=== PATIENT | male | born 1950 | race Two or more races ===

== ENCOUNTER 2017-08-17 21:28 | Inpatient (IN) | payer MEDICARE ==
[~2017-08-17] VITALS: Ht 165.1 cm; Wt 72.6 kg
--- NOTE | 2017-08-17 21:54 | Emergency Room Report ---
History of Present Illness General Chief Complaint: Generalized Weakness Source: Patient, EMS Present Illness HPI 67-year-old male, history of diabetes, poor historian, presenting with left- sided weakness and inability to ambulate since yesterday. Patient states that it has been constant, does not recall exactly when it happened. When asking the patient to walk, he is dragging left side. States that he normally is able to ambulate better. No history of head trauma. No numbness or tingling. No fever chills, headache, neck pain, chest pain or shortness of breath He states that he is otherwise been eating and drinking normally States that he lives alone in his own apartment last colonoscopy 1 yr ago was normal Allergies: Coded Allergies: No Known Allergies (Unverified , 08/17/17) Patient History Past Medical History: see triage record Past Surgical History: none Pertinent Family History: none Reviewed Nursing Documentation: PMH: Agreed, PSxH: Agreed Nursing Documentation-PMH Past Medical History: No History, Except For Hx Diabetes: Yes - dm2 Review of Systems All Other Systems: negative except mentioned in HPI Physical Exam Vital Signs Date Time Temp Pulse Resp B/P (MAP) Pulse Ox O2 Delivery O2 Flow Rate FiO2 08/17/17 21:09 98.8 86 16 150/70 99 Room Air Sp02 EP Interpretation: reviewed, normal General Appearance: normal inspection, well appearing, no apparent distress, alert, GCS 15, non-toxic Head: normocephalic, atraumatic Eyes: bilateral eye normal inspection, bilateral eye PERRL, bilateral eye EOMI ENT: normal ENT inspection, normal pharynx, normal voice, moist mucus membranes Neck: normal inspection, full range of motion, supple Respiratory: normal inspection, lungs clear, normal breath sounds, no respiratory distress, no retraction, no wheezing, speaking full sentences, chest symmetrical Cardiovascular #1: normal inspection, regular rate, rhythm, no edema, normal capillary refill Cardiovascular #2: 2+ radial (R), 2+ radial (L) Gastrointestinal: normal inspection, non tender, soft, non-distended, no guarding Genitourinary: no CVA tenderness Musculoskeletal: other - edema noted to dorsum of L foot, pitting, nontender, FROM Neurologic: other - aox3 but poor historian, 5/5 strength upper ext, dec strength LLE. gait is not stable. Psychiatric: normal inspection, judgement/insight normal, memory normal Skin: normal inspection, normal color, no rash, warm/dry, well hydrated, normal turgor Medical Decision Making Diagnostic Impression: Primary Impression: Severe anemia Additional Impression: Left leg weakness ER Course 67-year-old male, left-sided leg weakness for 2 days DDX: Stroke/intracranial bleed, trauma Plan: Obtain labs, ua, EKG, CXR CT head ER course: Patient has been monitored during ED stay, HD stable hgb noted to be low - transfusion initiated in ED. 2 prbcs ordered. I spoke to patient's niece. States that patient has been unable to care for himself for the last few weeks. CT HEad neg Disposition: Patient is to be admitted to tele D/W hospitalist Dr. Nguyen covering for Dr. Casanoav Please note that this Emergency Department Report was dictated using [employer] analyst technology software, occasionally this can lead to erroneous entry secondary to interpretation by the dictation equipment. EKG Diagnostic Results EP Interpretation: Yes Rate: normal Rhythm: NSR ST Segments: No acute changes ASA given to patient: No Rhythm Strip EP Interpretation: Yes Rate: 72 Rhythm: NSR, no PVCs, no ectopy Chest X-ray * CXR: Ordered: Yes 1 view Indication: Altered mental status EP interpretation: Yes Interpretation: No consolidation, no effusion, no PTX, no acute cardiopulmonary disease Impression: No acute disease Electronically signed by Noel Sweeney MD Laboratory Tests Test 08/17/17 21:50 08/17/17 22:15 White Blood Count 5.7 K/UL (4.8-10.8) Red Blood Count 3.37 M/UL (4.70-6.10) L Hemoglobin 6.5 G/DL (14.2-18.0) *L Hematocrit 24.2 % (42.0-52.0) L Mean Corpuscular Volume 72 FL (80-99) L Mean Corpuscular Hemoglobin 19.3 PG (27.0-31.0) L Mean Corpuscular Hemoglobin Concent 26.9 G/DL (32.0-36.0) L Red Cell Distribution Width 15.8 % (11.6-14.8) H Platelet Count 170 K/UL (150-450) Mean Platelet Volume 6.6 FL (6.5-10.1) Neutrophils (%) (Auto) % (45.0-75.0) Lymphocytes (%) (Auto) % (20.0-45.0) Monocytes (%) (Auto) % (1.0-10.0) Eosinophils (%) (Auto) % (0.0-3.0) Basophils (%) (Auto) % (0.0-2.0) Differential Total Cells Counted 100 Neutrophils % (Manual) 76 % (45-75) H Lymphocytes % (Manual) 16 % (20-45) L Monocytes % (Manual) 5 % (1-10) Eosinophils % (Manual) 0 % (0-3) Basophils % (Manual) 0 % (0-2) Band Neutrophils 3 % (0-8) Platelet Estimate Adequate Platelet Morphology Normal Hypochromasia 3+ Anisocytosis 2+ Microcytosis 2+ Prothrombin Time 10.7 SEC (9.30-11.50) Prothrombin Time INR 1.0 (0.9-1.1) PTT 25 SEC (23-33) Sodium Level 142 MMOL/L (136-145) Potassium Level 3.1 MMOL/L (3.5-5.1) L Chloride Level 106 MMOL/L (98-107) Carbon Dioxide Level 28 MMOL/L (21-32) Anion Gap 8 mmol/L (5-15) Blood Urea Nitrogen 19 mg/dL (7-18) H Creatinine 0.8 MG/DL (0.55-1.30) Estimate Glomerular Filtration Rate > 60 mL/min (>60) Glucose Level 90 MG/DL (74-106) Calcium Level 8.1 MG/DL (8.5-10.1) L Total Bilirubin 0.4 MG/DL (0.2-1.0) Aspartate Amino Transferase (AST) 28 U/L (15-37) Alanine Aminotransferase (ALT) 25 U/L (12-78) Alkaline Phosphatase 103 U/L (46-116) Troponin I 0.065 ng/mL (0.000-0.056) Total Protein 6.4 G/DL (6.4-8.2) Albumin 3.0 G/DL (3.4-5.0) L Globulin 3.4 g/dL Albumin/Globulin Ratio 0.9 (1.0-2.7) L Urine Color Yellow Urine Appearance Clear Urine pH 5 (4.5-8.0) Urine Specific [place] 1.015 (1.005-1.035) Urine Protein 2+ (NEGATIVE) H Urine Glucose (UA) Negative (NEGATIVE) Urine Ketones 2+ (NEGATIVE) H Urine Occult Blood Negative (NEGATIVE) Urine Nitrite Negative (NEGATIVE) Urine Bilirubin 1+ (NEGATIVE) H Urine Ictotest Negative Urine Urobilinogen 4 MG/DL (0.0-1.0) H Urine Leukocyte Esterase 1+ (NEGATIVE) H Urine RBC 0-2 /HPF (0 - 0) H Urine WBC 2-4 /HPF (0 - 0) Urine Squamous Epithelial Cells None /LPF (NONE/OCC) Urine Bacteria Few /HPF (NONE) CT/MRI/US Diagnostic Results CT/MRI/US Diagnostic Results : Imaging Test Ordered: CT Head Impression CT HEAD: No ICH, mass effect or edema. No evidence of acute cortical stroke. Periventricular small vessel ischemic change. Visualized sinuses and mastoid air cells are clear. Last Vital Signs Date Time Temp Pulse Resp B/P (MAP) Pulse Ox O2 Delivery O2 Flow Rate FiO2 08/17/17 21:09 98.8 86 16 150/70 99 Room Air Disposition: ADMITTED INPATIENT Condition: Serious Noel Sweeney M.D. Aug 17, 2017 21:54
[2017-08-17 22:40] LABS: ANION GAP 8 mmol/L (5-15); BLOOD UREA NITROGEN 19 mg/dL (7-18); CALCIUM 8.1 MG/DL (8.5-10.1); CARBON DIOXIDE 28 MMOL/L (21-32); CHLORIDE 106 MMOL/L (98-107); CREATININE 0.8 MG/DL (0.55-1.30); POTASSIUM 3.1 MMOL/L (3.5-5.1); SODIUM 142 MMOL/L (136-145)
[2017-08-17 22:43] LABS: HEMATOCRIT 24.2 % (42.0-52.0); MEAN CORPUSCULAR VOLUME 72 FL (80-99); PLATELET COUNT 170 K/UL (150-450); RED BLOOD COUNT 3.37 M/UL (4.70-6.10); RED CELL DISTRIBUTION WIDTH 15.8 % (11.6-14.8); WHITE BLOOD COUNT 5.7 K/UL (4.8-10.8)
[2017-08-17 22:45] LABS: ALANINE AMINOTRANSFERASE 25 U/L (12-78); ALBUMIN/GLOBULIN RATIO 0.9 (1.0-2.7); ALKALINE PHOSPHATASE 103 U/L (46-116); ASPARTATE AMINO TRANSFERASE 28 U/L (15-37); BILIRUBIN,TOTAL 0.4 MG/DL (0.2-1.0)
[2017-08-17 22:49] LABS: HEMOGLOBIN 6.5 G/DL (14.2-18.0)
[2017-08-17 22:56] LABS: APPEARANCE,URINE CLEAR; BILIRUBIN, URINE 1+ (NEGATIVE); GLUCOSE, URINE (UA) NEGATIVE (NEGATIVE); KETONES,URINE 2+ (NEGATIVE); LEUKOCYTE ESTERASE ,URINE 1+ (NEGATIVE); NITRITE,URINE NEGATIVE (NEGATIVE); PH,URINE 5 (4.5-8.0); PROTEIN,URINE 2+ (NEGATIVE); UROBILINOGEN,URINE 4 MG/DL (0.0-1.0)
[2017-08-17 23:19] LABS: COLOR,URINE YELLOW
[2017-08-17 23:20] VITALS: BP 130/50
[2017-08-18] VITALS (8 sets, daily range): BP systolic 101–141; BP diastolic 62–75
[2017-08-18] MEDS ORDERED: Miralax 17gm pkt ORAL PRN (01:45)
[2017-08-18] MEDS: D5 1/2NS w/KCl 20mEq 1,000 ML IV SCH ×2 (03:48→16:21)
[2017-08-18] MEDS: Docusate 100mg cap ORAL SCH ×2 (09:07→22:24)
[2017-08-18] MEDS: Pantoprazole Inj IV SCH (09:08)
--- NOTE | 2017-08-18 09:40 | Diagnostic Imaging Report ---
Indication: Altered mental status Technique: Contiguous 5 mm thick transaxial imaging of the head obtained in a Siemens Sensation [address] scanner. Soft tissue and bone windows generated. Automatic Exposure Control was utilized. Total Dose length Product (DLP): 1319.[address] Dose Index Volume (CTDIvol): 70.38 mGy Comparison: 02/27/2008 Findings: There is mild prominence of the ventricles, basal cisterns, and cerebral sulci consistent with atrophy. Mild, nonspecific, white matter hypoattenuation is noted throughout the brain consistent with chronic small vessel disease. There is no midline shift, edema, acute hemorrhage, mass effect, or abnormal extra-axial fluid collections. Bones and extra osseous soft tissues are unremarkable. Impression: No acute intracranial bleed, mass effect or edema. Mild atrophy of the brain. Nonspecific white matter hypoattenuation probably due to chronic small vessel disease. The CT scanner at [facility] is accredited by the [employer] and the scans are performed using dose optimization techniques as appropriate to a performed exam including Automatic Exposure control.
--- NOTE | 2017-08-18 10:39 | History and Physical ---
History of Present Illness General Date patient seen: Aug 18, 2017 Time patient seen: 10:38 Reason for Hospitalization: L arm/leg weakness, inability to ambulate Present Illness HPI 67y/o male with no sig pmh who presented with L sided weakness and inability to ambulate. 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 He was doing well until Tuesday when he noted L arm and leg weakness. He had difficulty ambulating. Denies f/c, n/v, d/c, chest pain, SOB, abd pain. Denies trauma, recent travel, sick contacts. No numbness/tingling. Pt lives alone and functions independently. Denies confusion, problems w/ speech/swallow. In ED, CT head was neg for acute abnormality. Labs showed anemia to 6.5, 2U pRBC ordered to be transfused. Allergies: Coded Allergies: No Known Allergies (Unverified , 08/17/17) Medication History No Active Prescriptions or Reported Meds Patient History History Provided By: Patient, Family Member, Medical Record, EMS Healthcare decision maker Resuscitation status Full Code Advanced Directive on File Past Medical/Surgical History Past Medical/Surgical History: (1) No significant past medical history Social History Social History: (1) Lives alone with help available Review of Systems Constitutional: Reports: weakness Eye: Reports: no symptoms ENT: Reports: no symptoms Respiratory: Reports: no symptoms Cardiovascular: Reports: no symptoms Gastrointestinal: Reports: no symptoms Genitourinary: Reports: no symptoms Musculoskeletal: Reports: no symptoms Skin: Reports: no symptoms Psychiatric: Reports: no symptoms Neurological: Reports: focal weakness Endocrine: Reports: no symptoms Hematologic/Lymphatic: Reports: no symptoms Physical Exam Physical Exam Narrative General: alert, cooperative, no distress, appears stated age Head: normocephalic, without obvious abnormality, atraumatic Eyes: conjunctivae/corneas clear. PERRL, EOM's intact Throat: lips, mucosa, and tongue normal. MMM Neck: supple, symmetrical, trachea midline, and no JVD Lungs: clear to auscultation bilaterally Heart: regular rate and rhythm, S1, S2 normal, no murmur, click, rub or gallop Abdomen: soft, non-tender, non-distended, bowel sounds normal; no masses or organomegaly Extremities: extremities normal, atraumatic, no cyanosis or edema Pulses: 2+ and symmetric Skin: skin color, texture, turgor normal; no rashes or lesions Neurologic: grossly normal, no focal deficits except 4/5 motor strength for L finger extensors and iliopsoas and iliopsoas. Last 24 Hour Vital Signs Date Time Temp Pulse Resp B/P (MAP) Pulse Ox O2 Delivery O2 Flow Rate FiO2 08/18/17 08:00 97.4 19 133/75 100 Room Air 08/18/17 04:00 97.0 69 18 129/73 100 08/18/17 04:00 64 08/18/17 02:40 98.0 74 15 120/64 100 Room Air 08/18/17 02:35 98.0 74 15 120/64 100 Room Air 08/18/17 02:20 97.4 71 16 08/18/17 02:18 97.4 71 16 115/62 100 Room Air 08/18/17 01:07 97.0 75 17 124/65 97 Room Air 08/17/17 23:20 97.0 75 23 130/50 100 Room Air 08/17/17 21:09 98.8 86 16 150/70 99 Room Air Intake and Output 08/17/17 08/18/17 19:00 07:00 Output Total 410 ml Balance -410 ml Output Urine Total 410 ml # Voids 1 Laboratory Tests Test 08/17/17 21:50 08/17/17 22:15 White Blood Count 5.7 K/UL (4.8-10.8) Red Blood Count 3.37 M/UL (4.70-6.10) L Hemoglobin 6.5 G/DL (14.2-18.0) *L Hematocrit 24.2 % (42.0-52.0) L Mean Corpuscular Volume 72 FL (80-99) L Mean Corpuscular Hemoglobin 19.3 PG (27.0-31.0) L Mean Corpuscular Hemoglobin Concent 26.9 G/DL (32.0-36.0) L Red Cell Distribution Width 15.8 % (11.6-14.8) H Platelet Count 170 K/UL (150-450) Mean Platelet Volume 6.6 FL (6.5-10.1) Neutrophils (%) (Auto) % (45.0-75.0) Lymphocytes (%) (Auto) % (20.0-45.0) Monocytes (%) (Auto) % (1.0-10.0) Eosinophils (%) (Auto) % (0.0-3.0) Basophils (%) (Auto) % (0.0-2.0) Differential Total Cells Counted 100 Neutrophils % (Manual) 76 % (45-75) H Lymphocytes % (Manual) 16 % (20-45) L Monocytes % (Manual) 5 % (1-10) Eosinophils % (Manual) 0 % (0-3) Basophils % (Manual) 0 % (0-2) Band Neutrophils 3 % (0-8) Platelet Estimate Adequate Platelet Morphology Normal Hypochromasia 3+ Anisocytosis 2+ Microcytosis 2+ Prothrombin Time 10.7 SEC (9.30-11.50) Prothromb Time International Ratio 1.0 (0.9-1.1) Activated Partial Thromboplast Time 25 SEC (23-33) Sodium Level 142 MMOL/L (136-145) Potassium Level 3.1 MMOL/L (3.5-5.1) L Chloride Level 106 MMOL/L (98-107) Carbon Dioxide Level 28 MMOL/L (21-32) Anion Gap 8 mmol/L (5-15) Blood Urea Nitrogen 19 mg/dL (7-18) H Creatinine 0.8 MG/DL (0.55-1.30) Estimat Glomerular Filtration Rate > 60 mL/min (>60) Glucose Level 90 MG/DL (74-106) Calcium Level 8.1 MG/DL (8.5-10.1) L Total Bilirubin 0.4 MG/DL (0.2-1.0) Aspartate Amino Transf (AST/SGOT) 28 U/L (15-37) Alanine Aminotransferase (ALT/SGPT) 25 U/L (12-78) Alkaline Phosphatase 103 U/L (46-116) Troponin I 0.065 ng/mL (0.000-0.056) Total Protein 6.4 G/DL (6.4-8.2) Albumin 3.0 G/DL (3.4-5.0) L Globulin 3.4 g/dL Albumin/Globulin Ratio 0.9 (1.0-2.7) L Urine Color Yellow Urine Appearance Clear Urine pH 5 (4.5-8.0) Urine Specific [place] 1.015 (1.005-1.035) Urine Protein 2+ (NEGATIVE) H Urine Glucose (UA) Negative (NEGATIVE) Urine Ketones 2+ (NEGATIVE) H Urine Occult Blood Negative (NEGATIVE) Urine Nitrite Negative (NEGATIVE) Urine Bilirubin 1+ (NEGATIVE) H Urine Ictotest Negative Urine Urobilinogen 4 MG/DL (0.0-1.0) H Urine Leukocyte Esterase 1+ (NEGATIVE) H Urine RBC 0-2 /HPF (0 - 0) H Urine WBC 2-4 /HPF (0 - 0) Urine Squamous Epithelial Cells None /LPF (NONE/OCC) Urine Bacteria Few /HPF (NONE) Height (Feet): 5 Height (Inches): 5.00 Weight (Pounds): 160 Medications Current Medications Medications (Trade) Dose Ordered Sig/Lizzy Route PRN Reason Start Time Stop Time Status Last Admin Dose Admin Acetaminophen (Tylenol) 650 mg Q4H PRN ORAL Mild Pain (Pain Scale 1-3) 08/18/17 01:45 09/17/17 01:44 Acetaminophen (Tylenol) 650 mg Q4H PRN ORAL fever 08/18/17 01:45 09/17/17 01:44 Bisacodyl (Dulcolax) 10 mg DAILYPRN PRN RECTAL Constipation 08/18/17 01:45 09/17/17 01:44 Dextrose (Dextrose 50%) STAT PRN IV Hypoglycemia 08/18/17 01:45 09/17/17 01:44 Dextrose/ Electrolytes 1,000 ml @ 75 mls/hr [id number] IV 08/18/17 03:00 09/17/17 02:59 08/18/17 03:48 Docusate Sodium (Colace) 100 mg EVERY 12 HOURS ORAL 08/18/17 09:00 09/17/17 08:59 08/18/17 09:07 Influenza Virus Vaccine Quadrival (Flu Vaccine Quadrivalent) 0.5 ml ONCE ONCE IM 08/18/17 11:00 08/18/17 11:01 Ondansetron HCl (Zofran) 4 mg Q6H PRN IVP Nausea & Vomiting 08/18/17 01:45 09/17/17 01:44 Pantoprazole (Protonix) 40 mg DAILY IV 08/18/17 09:00 09/17/17 08:59 08/18/17 09:08 Pneumococcal Polyvalent Vaccine (Pneumovax) 0.5 ml ONCE ONCE IM 08/18/17 11:00 08/18/17 11:01 Polyethylene Glycol (Miralax) 17 gm DAILYPRN PRN ORAL Constipation 08/18/17 01:45 09/17/17 01:44 Assessment/Plan Problem List: (1) Acute CVA of R parietal lobe (2) Severe anemia Assessment & Plan: Microcytic anemia ICD Codes: D64.9 - Anemia, unspecified SNOMED: 900850983 (3) Hypokalemia ICD Codes: E87.6 - Hypokalemia SNOMED: 58310541 Status: stable Assessment/Plan Admit to tele Neuro consulted F/u MRI brain--confirms acute R parietal lobe CVA Neuro checks Check carotid U/S Trend trop/EKG Check TTE ASA 325mg daily given CVA Check lipid panel, TSH, A1C Hematology consulted given severe anemia s/p 2U pRBC on 08/17/17 Check B12/folate, Fe panel/ferritin GI consulted given severe anemia Likely plan for EGD tomorrow per GI Trend CBC, BMP Replete lytes Pain control, bowel regimen Supportive care PT/OT DVT Prophylaxis: SCD Code Status: Full Hospital Classification Declaration: Based on this initial evaluation, and depending on the patient's clinical course, I anticipate that this patient will require hospitalization for 2-3 days for acute CVA, severe anemia and close respiratory/hemodynamic monitoring. Disposition: Once the patient is stable to leave the hospital, I anticipate the patient will likely be discharged to the following environment: home with HH vs SNF vs ARU I spent 72 minutes on this patient's case, and 40 minutes were dedicated to counseling and/or care coordination. Discussed with patient/family, nursing staff, SW/CM, GI, hematology, neuro regarding clinical status, treatment course , and disposition planning. Time of note may not reflect time of encounter. Smitha Lilly M.D. Aug 18, 2017 10:39
--- NOTE | 2017-08-18 10:43 | Diagnostic Imaging Report ---
Indication: Dyspnea Comparison: None A single view chest radiograph was obtained. Findings: Cardiomediastinal appearance is within normal limits for age. Pulmonary vascularity is appropriate. The diaphragmatic contour is smooth and costophrenic angles are sharp. No pleural effusions are identified. Marginal spurs noted throughout the thoracic spine. Visualized part of the upper abdomen demonstrates dilated loops of bowel which appear to be portions of the colon. Please correlate clinically and evaluate further as needed. Impression: Distended colon. Please correlate clinically
[2017-08-18] MEDS ORDERED: Flu Vaccine Quadrivalent 0.5ml IM ONE (11:00)
[2017-08-18] MEDS ORDERED: Pneumococcal Vaccine 25mcg/0.5ml IM ONE (11:00)
--- NOTE | 2017-08-18 12:14 | Diagnostic Imaging Report ---
Indication: Right-sided weakness 63-year-old male Technique: The head was imaged in a 1.5 Chrystal magnet. Sequences obtained include sagittal and axial T1 FLAIR, axial T2 fast spin echo with fat saturation, axial T2 FLAIR, diffusion and ADC map. Comparison: CT head 08/17/2017 There is a focus of diffusion restriction involving the right parietal lobe. The involvement is cortical and subcortical and primarily involves the postcentral gyrus parietal lobe. Findings consistent with acute nonhemorrhagic CVA. Some associated T2 hyperintense edema noted. There is no susceptibility identified on T2*gradient echo. There is no mass effect on the sulci which appear symmetric. The ventricles are prominent but symmetric. Generalized prominence of cerebral sulci and basal cisterns noted consistent with atrophy. Periventricular T2 hyperintense signal consistent with chronic small vessel disease. Corpus callosum is unremarkable. Osseous bone marrow signal is age-appropriate. Sella is unremarkable. IMPRESSION: Acute CVA in the right parietal cortex involving the postcentral gyrus. Mild associated edema. No mass effect, midline shift or evidence of associated hemorrhage. Age-related findings as discussed above Critical value communication. Findings were discussed via telephone with the floor nurse on 2 E. at 12:08 PM, 08/18/2017 .
[2017-08-18] MEDS ORDERED: Nulytely 4L ORAL ONE (16:00)
[2017-08-18] MEDS ORDERED: Bisacodyl EC 5mg tab ORAL ONE (16:00)
[2017-08-18 16:17] LABS: BASOPHILS % (AUTO) 0.9 % (0.0-2.0); EOSINOPHILS % (AUTO) 0.9 % (0.0-3.0); HEMATOCRIT 29.7 % (42.0-52.0); HEMOGLOBIN 8.4 G/DL (14.2-18.0); LYMPHOCYTES % (AUTO) 17.9 % (20.0-45.0); MEAN CORPUSCULAR VOLUME 74 FL (80-99); MONOCYTES % (AUTO) 10.6 % (1.0-10.0); NEUTROPHILS % (AUTO) 69.7 % (45.0-75.0); PLATELET COUNT 161 K/UL (150-450); RED BLOOD COUNT 3.99 M/UL (4.70-6.10); RED CELL DISTRIBUTION WIDTH 16.7 % (11.6-14.8); WHITE BLOOD COUNT 4.4 K/UL (4.8-10.8)
[2017-08-18 16:26] LABS: ANION GAP 8 mmol/L (5-15); BLOOD UREA NITROGEN 12 mg/dL (7-18); CALCIUM 8.2 MG/DL (8.5-10.1); CARBON DIOXIDE 28 MMOL/L (21-32); CHLORIDE 106 MMOL/L (98-107); CREATININE 0.7 MG/DL (0.55-1.30); POTASSIUM 3.3 MMOL/L (3.5-5.1); SODIUM 142 MMOL/L (136-145)
[2017-08-18 16:27] LABS: BILIRUBIN,TOTAL 1.5 MG/DL (0.2-1.0)
[2017-08-18 16:31] LABS: FERRITIN 8 NG/ML (8-388)
[2017-08-18 16:44] LABS: % IRON SATURATION 60 % (15-50); IRON 258 ug/dL (50-175); TOTAL IRON BINDING CAPACITY 428 ug/dL (250-450)
[2017-08-18 16:45] LABS: BILIRUBIN,DIRECT 0.4 MG/DL (0.0-0.3)
--- NOTE | 2017-08-18 17:35 | GI Initial Consult Note ---
Rani Mercado N.PSchuyler 08/18/17 1735: History of Present Illness General Date patient seen: Aug 18, 2017 Time patient seen: 11:00 Reason for Hospitalization: Generalized Weakness Referring physician: STEVEN ISABEL Reason for Consultation: ANEMIA Present Illness HPI 67-year-old male, history of diabetes, poor historian, presenting with left- sided weakness and inability to ambulate since yesterday. Patient states that it has been constant, does not recall exactly when it happened. When asking the patient to walk, he is dragging left side. States that he normally is able to ambulate better. No history of head trauma. No numbness or tingling. No fever chills, headache, neck pain, chest pain or shortness of breath He states that he is otherwise been eating and drinking normally States that he lives alone in his own apartment last colonoscopy 1 yr ago was normal GI consulted for anemia. HPI noted above. Pt seen on floor, awake A&O NAD with no active s/sx of N/V/D. He presents today with symptomatic anemia of low Hgb 6.5 requiring blood transfusion and mild troponin elevation. Patient pending brain MRI at this time. No other GI complaints noted at this time. Home Meds No Active Prescriptions or Reported Meds Med list reviewed/reconciled: Yes Allergies: Coded Allergies: No Known Allergies (Unverified , 08/17/17) Patient History History Provided By: Patient, Medical Record PMH Narrative Past Medical History: see triage record Past Surgical History: none Pertinent Family History: none Reviewed Nursing Documentation: PMH: Agreed, PSxH: Agreed Nursing Documentation-PMH Past Medical History: No History, Except For Hx Diabetes: Yes - dm2 Review of Systems All Other Systems: negative except mentioned in HPI Physical Exam Vital Signs Date Time Temp Pulse Resp B/P (MAP) Pulse Ox O2 Delivery O2 Flow Rate FiO2 08/17/17 21:09 98.8 86 16 150/70 99 Room Air Sp02 EP Interpretation: reviewed, normal Labs Laboratory Tests Test 08/17/17 21:50 08/17/17 22:15 08/18/17 15:30 White Blood Count 5.7 K/UL (4.8-10.8) 4.4 K/UL (4.8-10.8) L Red Blood Count 3.37 M/UL (4.70-6.10) L 3.99 M/UL (4.70-6.10) L Hemoglobin 6.5 G/DL (14.2-18.0) *L 8.4 G/DL (14.2-18.0) L Hematocrit 24.2 % (42.0-52.0) L 29.7 % (42.0-52.0) L Mean Corpuscular Volume 72 FL (80-99) L 74 FL (80-99) L Mean Corpuscular Hemoglobin 19.3 PG (27.0-31.0) L 21.1 PG (27.0-31.0) L Mean Corpuscular Hemoglobin Concent 26.9 G/DL (32.0-36.0) L 28.4 G/DL (32.0-36.0) L Red Cell Distribution Width 15.8 % (11.6-14.8) H 16.7 % (11.6-14.8) H Platelet Count 170 K/UL (150-450) 161 K/UL (150-450) Mean Platelet Volume 6.6 FL (6.5-10.1) 7.3 FL (6.5-10.1) Neutrophils (%) (Auto) % (45.0-75.0) 69.7 % (45.0-75.0) Lymphocytes (%) (Auto) % (20.0-45.0) 17.9 % (20.0-45.0) L Monocytes (%) (Auto) % (1.0-10.0) 10.6 % (1.0-10.0) H Eosinophils (%) (Auto) % (0.0-3.0) 0.9 % (0.0-3.0) Basophils (%) (Auto) % (0.0-2.0) 0.9 % (0.0-2.0) Differential Total Cells Counted 100 Neutrophils % (Manual) 76 % (45-75) H Pending Lymphocytes % (Manual) 16 % (20-45) L Pending Monocytes % (Manual) 5 % (1-10) Eosinophils % (Manual) 0 % (0-3) Basophils % (Manual) 0 % (0-2) Band Neutrophils 3 % (0-8) Platelet Estimate Adequate Pending Platelet Morphology Normal Pending Hypochromasia 3+ Anisocytosis 2+ Microcytosis 2+ Prothrombin Time 10.7 SEC (9.30-11.50) Prothromb Time International Ratio 1.0 (0.9-1.1) Activated Partial Thromboplast Time 25 SEC (23-33) Sodium Level 142 MMOL/L (136-145) 142 MMOL/L (136-145) Potassium Level 3.1 MMOL/L (3.5-5.1) L 3.3 MMOL/L (3.5-5.1) L Chloride Level 106 MMOL/L (98-107) 106 MMOL/L (98-107) Carbon Dioxide Level 28 MMOL/L (21-32) 28 MMOL/L (21-32) Anion Gap 8 mmol/L (5-15) 8 mmol/L (5-15) Blood Urea Nitrogen 19 mg/dL (7-18) H 12 mg/dL (7-18) Creatinine 0.8 MG/DL (0.55-1.30) 0.7 MG/DL (0.55-1.30) Estimat Glomerular Filtration Rate > 60 mL/min (>60) > 60 mL/min (>60) Glucose Level 90 MG/DL (74-106) 93 MG/DL (74-106) Calcium Level 8.1 MG/DL (8.5-10.1) L 8.2 MG/DL (8.5-10.1) L Total Bilirubin 0.4 MG/DL (0.2-1.0) 1.5 MG/DL (0.2-1.0) H Aspartate Amino Transf (AST/SGOT) 28 U/L (15-37) Alanine Aminotransferase (ALT/SGPT) 25 U/L (12-78) Alkaline Phosphatase 103 U/L (46-116) Troponin I 0.065 ng/mL (0.000-0.056) 0.052 ng/mL (0.000-0.056) Total Protein 6.4 G/DL (6.4-8.2) Albumin 3.0 G/DL (3.4-5.0) L Globulin 3.4 g/dL Albumin/Globulin Ratio 0.9 (1.0-2.7) L Urine Color Yellow Urine Appearance Clear Urine pH 5 (4.5-8.0) Urine Specific [place] 1.015 (1.005-1.035) Urine Protein 2+ (NEGATIVE) H Urine Glucose (UA) Negative (NEGATIVE) Urine Ketones 2+ (NEGATIVE) H Urine Occult Blood Negative (NEGATIVE) Urine Nitrite Negative (NEGATIVE) Urine Bilirubin 1+ (NEGATIVE) H Urine Ictotest Negative Urine Urobilinogen 4 MG/DL (0.0-1.0) H Urine Leukocyte Esterase 1+ (NEGATIVE) H Urine RBC 0-2 /HPF (0 - 0) H Urine WBC 2-4 /HPF (0 - 0) Urine Squamous Epithelial Cells None /LPF (NONE/OCC) Urine Bacteria Few /HPF (NONE) Hemoglobin A Pending Hemoglobin A2 Pending Hemoglobin C Pending Hemoglobin F () Pending Hemoglobin S Pending Variant Hemoglobin Pending Hemoglobin Electrophoresis Interp Pending Hemoglobin Interpretation Pending Hemoglobin Solubility Pending Magnesium Level 1.8 MG/DL (1.8-2.4) Iron Level 258 ug/dL (50-175) H Total Iron Binding Capacity 428 ug/dL (250-450) Percent Iron Saturation 60 % (15-50) H Unsaturated Iron Binding 170 ug/dL (112-346) Ferritin 8 NG/ML (8-388) Direct Bilirubin 0.4 MG/DL (0.0-0.3) H Lactate Dehydrogenase 264 U/L (81-234) H Vitamin B12 Level 221 PG/ML (193-986) Vitamin D 25-Hydroxy Pending 25-Hydroxy Vitamin D2 Pending 25-Hydroxy Vitamin D3 Pending Folate 17.2 NG/ML (8.6-58.9) Homocystine Pending Thyroid Stimulating Hormone (TSH) 1.168 uiU/mL (0.358-3.740) General Appearance: well appearing, no apparent distress, alert Head: normocephalic EENT: PERRL/EOMI, normal ENT inspection Neck: supple Respiratory: normal breath sounds, no respiratory distress Cardiovascular: normal rate Gastrointestinal: normal inspection, non tender, soft, normal bowel sounds, non -distended Rectal: deferred Genitourinary: deferred Musculoskeletal: normal inspection, back normal Neurologic: normal inspection, alert, oriented x3, responsive Psychiatric: normal inspection, judgement/insight normal, memory normal Skin: normal inspection, normal color, no rash, warm/dry, palpation normal, well hydrated Lymphatic: normal inspection, no adenopathy Current Medications Current Medications Medications (Trade) Dose Ordered Sig/Lizzy Route PRN Reason Start Time Stop Time Status Last Admin Dose Admin Acetaminophen (Tylenol) 650 mg Q4H PRN ORAL Mild Pain (Pain Scale 1-3) 08/18/17 01:45 09/17/17 01:44 Acetaminophen (Tylenol) 650 mg Q4H PRN ORAL fever 08/18/17 01:45 09/17/17 01:44 Aspirin (ASA) 325 mg DAILY ORAL 08/18/17 14:00 09/17/17 13:59 08/18/17 13:55 Bisacodyl (Dulcolax) 10 mg DAILYPRN PRN RECTAL Constipation 08/18/17 01:45 09/17/17 01:44 Dextrose (Dextrose 50%) STAT PRN IV Hypoglycemia 08/18/17 01:45 09/17/17 01:44 Dextrose/ Electrolytes 1,000 ml @ 75 mls/hr [id number] IV 08/18/17 03:00 09/17/17 02:59 08/18/17 16:21 Docusate Sodium (Colace) 100 mg EVERY 12 HOURS ORAL 08/18/17 09:00 09/17/17 08:59 08/18/17 09:07 Ondansetron HCl (Zofran) 4 mg Q6H PRN IVP Nausea & Vomiting 08/18/17 01:45 09/17/17 01:44 Pantoprazole (Protonix) 40 mg DAILY IV 08/18/17 09:00 09/17/17 08:59 08/18/17 09:08 Polyethylene Glycol (Miralax) 17 gm DAILYPRN PRN ORAL Constipation 08/18/17 01:45 09/17/17 01:44 Sodium Phosphate (Fleet's Sodium Phosl Enema) 133 ml ONCE ONCE RECTAL 08/18/17 23:00 08/18/17 23:01 GI: Plan Problems: (1) Severe anemia Plan EGD/colonoscopy scheduled for tomorrow given severe symptomatic anemia. - CLD now, NPO @ NH. - hold all blood thinners tonight. anemia work up reviewed prn transfusions ppi fu labs Discussed with Dr. Betancur. Thank you for this patient referral, we will follow. VANNESSA BETANCUR 08/19/17 1207: History of Present Illness General Reason for Hospitalization: Generalized Weakness Present Illness Home Meds No Active Prescriptions or Reported Meds Allergies: Coded Allergies: No Known Allergies (Unverified , 08/17/17) GI: Plan Plan The patient was seen and examined at bedside and all new and available data was reviewed in the patients chart. I agree with the above findings, impression and plan. (Patient seen earlier today. Signature stamp does not reflect patient encounter time.). - MD [facility] [place] Laron NSchuylerPSchuyler Aug 18, 2017 17:35 VANNESSA BETANCUR Aug 19, 2017 12:07
--- NOTE | 2017-08-18 19:41 | Consultation ---
Consult Note Consult Note NEUROLOGY CONSULTATION: Full note dictated #[id number] 67 y/o, RH, HM with a 3 days history of progressive left sided weakness. He thus presented to the [facility] ER On being evaluated in the ER he had a CT of the brain which was reportedly normal. Lab tests revealed that he was severely anemic with a HB of 6.5. His B 12 level was also low at 221. He then had a MRI of the brain which revealed a right predominantly parietal infarct with minimal involvement of the frontal area. ON EXAM: Mild problems with memory, HCF Left paresis Left hyper-reflexia Left paretic gait. 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 Severe anemia. Neurologic B 12 deficiency. REC: Agree with Rx. Agree with GI W/U to evaluate for GI source of bleeding. Correct Hb to >10 G Carotid duplex. PT/OT Observe Chavez Salcido M.D., M.S.P.CHAVEZ EARLY Aug 18, 2017 19:41
[2017-08-18] MEDS: Vitamin B12 1000mcg/ml Inj SUBQ SCH (22:24)
--- NOTE | 2017-08-18 22:45 | Consultation ---
DATE OF CONSULTATION: 08/18/2017 NEUROLOGY CONSULTATION CONSULTING PHYSICIAN: José Miguel Salcido M.D. REQUESTING PHYSICIAN: Smitha Lilly M.D. HISTORY: Mr. Hany Collazo is a 67-year-old, right-handed, gentleman, who has a relatively benign past history. He tells us that he was functioning relatively well until three days ago when he noticed progressive weakness involving his left upper and lower extremities. As a result of that, he presented to the [facility] on 08/17/2017. He was evaluated with laboratory data, which revealed that he was significantly anemic. He also had a CT scan of the brain performed, which was relatively benign. He was then admitted to the hospital and has continued to have left-sided weakness. He has also noticed that walking has become a little difficult. The weakness that was progressively worsening has remained about the same today. He denies any altered sensations, problems with speech, problems with language, problems with vision, or any other neurological symptoms. He also denies any similar symptoms in the past. PAST MEDICAL HISTORY: Significant for diabetes mellitus as per the chart, but the patient denies any past history of any illness. FAMILY HISTORY: Nothing significant as per the patient. PERSONAL HISTORY: Home: He lives with other family members. Work: He cleans rooms. Habits: He denies the use of alcohol, tobacco, or illicit drugs. PRESENT MEDICATIONS: Include aspirin 325 mg, Protonix, DSS, Tylenol p.r.n., Dulcolax p.r.n., MiraLax p.r.n., and Zofran p.r.n. PHYSICAL EXAMINATION: GENERAL: He is a well-developed, relatively well-nourished, pleasant, gentleman, lying in bed, in no acute distress. VITAL SIGNS: Pulse 68 per minute, blood pressure 125/71 mmHg, respirations 18 per minute, and temperature 96.8 degrees Fahrenheit. HEAD: Normocephalic and atraumatic. NECK: No neck rigidity was observed. EENT: Benign. NEUROLOGICAL EXAMINATION: MENTAL STATUS EXAMINATION: He was awake and alert. He was oriented to person, place, and time. He was able to recall 3/3 words immediately after 1 minute and after 3 minutes on the second trial. He was able to remember presidents, Trump through Golden Amarjit spontaneously, but needed hints to remember through Golden Senior. His mathematical skills were impaired. His visuospatial function was also impaired. SPEECH: He had no dysarthria. LANGUAGE: He had no aphasia in [place]. CRANIAL NERVE EXAMINATION: II: The visual archuleta were intact on confrontation testing. III, IV & : External ocular movements were full and the pupils 3 mm in diameter, equal, round, regular, and reactive to light. V: He had normal facial sensations and the temporales, masseters, and pterygoids functioned normally. VII: He had a mild left seventh central facial paresis. VIII: He was able to hear well bilaterally and had no nystagmus. IX: The palate moved symmetrically on phonation. X: He had no hoarseness of voice. XI: The sternocleidomastoids and trapezii functioned normally. XII: The tongue was in the midline without any fasciculations or atrophy. MOTOR SYSTEM: The tone was normal in all four extremities. Examination of muscle mass revealed no focal wasting. Examination of power revealed G 5/5 power except for G 4+/5 power in the left finger extensors and iliopsoas. SENSORY EXAMINATION: He had intact sensations to pinprick, light touch, and graphesthesia. COORDINATION: He performed well on [id number] and [id number]-txxt testing. Rapid alternating movements, however, were quite clumsy on the left side compared to the right. REFLEXES: 2+ on the right and 2++ on the left in the biceps, triceps, and brachioradialis, 2+ on the right and 3+ on the left at the knees, 1+ at both ankles. The plantar responses were flexor bilaterally. STANCE: He stood up with contact guard. GAIT: He walked with a left hemiparetic gait with contact guard. DIAGNOSTIC IMPRESSION: 1. Mr. Hany Collazo is a 67-year-old, right-handed, gentleman, with a past history of diabetes mellitus, who approximately three days ago noted some progressive left-sided weakness. As a result of that, he presented to the [facility] Room. He was noted to be significantly anemic, but a CT scan of the brain was benign. 2. On neurological examination at this time, he does have mild problems with recent and remote memory, visuospatial function, and higher cognitive function. He also has left hemiparesis involving the face, upper and lower extremities, left-sided hyperreflexia, and left hemiparetic gait. 3. The MRI scan of the brain performed on 08/18/2017 reveals a right-sided predominantly parietal infarct with minimal involvement of the frontal area. 4. Laboratory data revealed that his hemoglobin on admission was at 6.5 G. He had a normal INR. The chemistry panel revealed that his BUN was elevated to 19. His albumin was low at 3.0. His vitamin B12 level was low at 221. His folic acid level was 17.2 and his bilirubin was elevated to 1.5. His urinalysis revealed 1+ leukocyte esterase, 0 to 2 red blood cells, and 2 to 4 white blood cells per high-power field. 5. 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 He also has severe anemia and vitamin B12 deficiency. RECOMMENDATIONS: 1. Agree with management thus far. 2. Agree with working the patient up for a gastrointestinal source of bleeding. 3. The patient's hemoglobin should be brought up to greater than 10 G. 4. A carotid duplex should be performed to evaluate the patient for hemodynamically significant carotid disease. 5. He should be given vitamin B12 1000 mcg subcutaneously daily for the next three days and then monthly. 6. Physical and occupational therapy should be started to rehabilitate him. 7. The patient will be observed closely and depending on how he fairs over the next day or so, further recommendations will be given. Thank you for entrusting me with the care of Mr. Collazo. I shall follow him with you. José Miguel Salcido M.D., M.S.P.H. DR: Nic JOB#: [id number] SHANNON
[2017-08-18] MEDS ORDERED: Fleet's Enema 133ml RECTAL ONE (23:00)
[2017-08-19] VITALS (10 sets, daily range): BP systolic 100–139; BP diastolic 63–88
--- NOTE | 2017-08-19 06:33 | Anethesia Preoperative Eval ---
Anesthesia Pre-op PMH/ROS General Date of Evaluation: Aug 19, 2017 Time of Evaluation: 06:30 Anesthesiologist: james ASA Score: ASA 3 Mallampati Score Class I : Soft palate, uvula, fauces, pillars visible Class II: Soft palate, uvula, fauces visible Class III: Soft palate, base of uvula visible Class IV: Only hard plate visible Mallampati Classification: Class II Surgeon: luis Diagnosis: severe anemia Surgical Procedure: egd/colonoscopy Anesthesia History: none Social History: smoking Family History: no anesthesia problems Allergies: Coded Allergies: No Known Allergies (Unverified , 08/17/17) Medications: see eMAR Past Medical History Gastrointestinal/Genitourinary: Reports: other - prostate tumor non cancerous, Neurologic/Psychiatric: Reports: other - left sided weakness, generalized weakness, unable to ambulate Endocrine: Reports: DM Hematology/Immune: Reports: anemia Anesthesia Pre-op Phys. Exam Physician Exam Last Vital Signs Date Time Temp Pulse Resp B/P (MAP) Pulse Ox O2 Delivery O2 Flow Rate FiO2 08/19/17 04:19 98.5 61 18 124/64 97 Room Air Constitutional: NAD Neurologic: CN 2-12 intact Cardiovascular: RRR Respiratory: CTA Gastrointestinal: S/NT/ND Airway Exam Mallampati Score: Class II MO: full Neck: supple TMD: 2fb ROM: limited Anesthesia Pre-op A/P Labs Hematology Test 08/18/17 15:30 White Blood Count 4.4 K/UL (4.8-10.8) L Red Blood Count 3.99 M/UL (4.70-6.10) L Hemoglobin 8.4 G/DL (14.2-18.0) L Hematocrit 29.7 % (42.0-52.0) L Mean Corpuscular Volume 74 FL (80-99) L Mean Corpuscular Hemoglobin 21.1 PG (27.0-31.0) L Mean Corpuscular Hemoglobin Concent 28.4 G/DL (32.0-36.0) L Red Cell Distribution Width 16.7 % (11.6-14.8) H Platelet Count 161 K/UL (150-450) Mean Platelet Volume 7.3 FL (6.5-10.1) Neutrophils (%) (Auto) 69.7 % (45.0-75.0) Lymphocytes (%) (Auto) 17.9 % (20.0-45.0) L Monocytes (%) (Auto) 10.6 % (1.0-10.0) H Eosinophils (%) (Auto) 0.9 % (0.0-3.0) Basophils (%) (Auto) 0.9 % (0.0-2.0) Hemoglobin A Pending Hemoglobin A2 Pending Hemoglobin C Pending Hemoglobin F () Pending Hemoglobin S Pending Variant Hemoglobin Pending Hemoglobin Electrophoresis Interp Pending Hemoglobin Interpretation Pending Hemoglobin Solubility Pending Coagulation Test 08/18/17 18:25 Fibrinogen 175 mg/dL (200-400) L Chemistry Test 08/18/17 15:30 Sodium Level 142 MMOL/L (136-145) Potassium Level 3.3 MMOL/L (3.5-5.1) L Chloride Level 106 MMOL/L (98-107) Carbon Dioxide Level 28 MMOL/L (21-32) Anion Gap 8 mmol/L (5-15) Blood Urea Nitrogen 12 mg/dL (7-18) Creatinine 0.7 MG/DL (0.55-1.30) Estimat Glomerular Filtration Rate > 60 mL/min (>60) Glucose Level 93 MG/DL (74-106) Calcium Level 8.2 MG/DL (8.5-10.1) L Magnesium Level 1.8 MG/DL (1.8-2.4) Iron Level 258 ug/dL (50-175) H Total Iron Binding Capacity 428 ug/dL (250-450) Percent Iron Saturation 60 % (15-50) H Unsaturated Iron Binding 170 ug/dL (112-346) Ferritin 8 NG/ML (8-388) Total Bilirubin 1.5 MG/DL (0.2-1.0) H Direct Bilirubin 0.4 MG/DL (0.0-0.3) H Lactate Dehydrogenase 264 U/L (81-234) H Troponin I 0.052 ng/mL (0.000-0.056) Vitamin B12 Level 221 PG/ML (193-986) Vitamin D 25-Hydroxy Pending 25-Hydroxy Vitamin D2 Pending 25-Hydroxy Vitamin D3 Pending Folate 17.2 NG/ML (8.6-58.9) Homocystine Pending Thyroid Stimulating Hormone (TSH) 1.168 uiU/mL (0.358-3.740) Risk Assessment & Plan Assessment: asa3 Plan: mac Status Change Before Surgery: No Pre-Antibiotics Drug: ABBY Bean Aug 19, 2017 06:33
[2017-08-19 08:05] LABS: HEMATOCRIT 26.1 % (42.0-52.0); HEMOGLOBIN 8.1 G/DL (14.2-18.0); MEAN CORPUSCULAR VOLUME 74 FL (80-99); PLATELET COUNT 163 K/UL (150-450); RED BLOOD COUNT 3.54 M/UL (4.70-6.10); RED CELL DISTRIBUTION WIDTH 17.3 % (11.6-14.8); WHITE BLOOD COUNT 3.3 K/UL (4.8-10.8)
[2017-08-19 08:19] LABS: ANION GAP 6 mmol/L (5-15); BLOOD UREA NITROGEN 12 mg/dL (7-18); CALCIUM 8.2 MG/DL (8.5-10.1); CARBON DIOXIDE 30 MMOL/L (21-32); CHLORIDE 107 MMOL/L (98-107); CHOLESTEROL 94 MG/DL (< 200); CREATININE 0.7 MG/DL (0.55-1.30); HDL CHOLESTEROL 34 MG/DL (40-60); POTASSIUM 4.5 MMOL/L (3.5-5.1); SODIUM 142 MMOL/L (136-145); TRIGLYCERIDES 44 MG/DL (30-150)
[2017-08-19 08:26] LABS: ALANINE AMINOTRANSFERASE 30 U/L (12-78); ALBUMIN 2.7 G/DL (3.4-5.0); ALKALINE PHOSPHATASE 95 U/L (46-116); ASPARTATE AMINO TRANSFERASE 25 U/L (15-37); BILIRUBIN,DIRECT 0.2 MG/DL (0.0-0.3); BILIRUBIN,TOTAL 0.7 MG/DL (0.2-1.0)
[2017-08-19] MEDS: D5 1/2NS w/KCl 20mEq 1,000 ML IV SCH ×2 (08:27→18:57)
[2017-08-19] MEDS: Pantoprazole Inj IV SCH (08:28)
[2017-08-19] MEDS: Docusate 100mg cap ORAL SCH ×2 (08:28→20:35)
[2017-08-19 08:45] LABS: INR 1.1 (0.9-1.1)
[2017-08-19] MEDS ORDERED: Propofol 200mg/20ml IV ONE (08:55)
[2017-08-19] MEDS ORDERED: Lidocaine 1% MPF 10mg/ml 5ml ONE (08:55)
[2017-08-19] MEDS ORDERED: NS 275ml ONE (08:55)
[2017-08-19 09:20] LABS: % IRON SATURATION 7 % (15-50); IRON 25 ug/dL (50-175); TOTAL IRON BINDING CAPACITY 367 ug/dL (250-450)
--- NOTE | 2017-08-19 09:28 | Pre-Procedure Note/Attestation ---
Pre-Procedure Note/Attestation Complete Prior to Procedure Planned Procedure: not applicable Procedure Narrative: esophagogastroduodenoscopy and colonoscopy Indications for Procedure Pre-Operative Diagnosis: anemia, GIB Attestation I attest that I discussed the nature of the procedure; its benefits; risks and complications; and alternatives (and the risks and benefits of such alternatives ), prior to the procedure, with the patient (or the patient's legal congressional representative). I attest that, if there was a reasonable possibility of needing a blood transfusion, the patient (or the patient's legal congressional representative) was given the [facility] standardized written summary, pursuant to the Delano Wentworth Blood Safety Act ([place] Health and Safety Code # 1645, as amended). I attest that I re-evaluated the patient just prior to the surgery and that there has been no change in the patient's H&P, except as documented below: VANNESSA BETANCUR Aug 19, 2017 09:28
--- NOTE | 2017-08-19 09:29 | General Progress Note ---
Assessment/Plan Problem List: (1) Acute CVA of R parietal lobe (2) Severe anemia ICD Codes: D64.9 - Anemia, unspecified SNOMED: 494700720 Assessment/Plan plan EGD and colonoscopy today Subjective ROS Limited/Unobtainable: Yes Allergies: Coded Allergies: No Known Allergies (Unverified , 08/17/17) Objective Last 24 Hour Vital Signs Date Time Temp Pulse Resp B/P (MAP) Pulse Ox O2 Delivery O2 Flow Rate FiO2 08/19/17 04:19 98.5 61 18 124/64 97 Room Air 08/19/17 04:00 56 08/19/17 00:24 96.7 54 18 110/66 Room Air 08/19/17 00:00 55 08/18/17 20:56 97.0 59 18 101/67 100 Room Air 08/18/17 20:00 56 08/18/17 16:00 68 08/18/17 16:00 96.8 57 19 125/71 100 08/18/17 12:00 97.7 60 18 141/74 99 08/18/17 12:00 64 Intake and Output 08/18/17 08/19/17 19:00 07:00 Intake Total 1347 ml 850 ml Output Total 300 ml 600 ml Balance 1047 ml 250 ml Intake Oral 472 ml IV Total 875 ml 850 ml Output Urine Total 300 ml 600 ml # Voids 3 # Bowel Movements 1 Laboratory Tests 08/18/17 15:30: White Blood Count 4.4L, Red Blood Count 3.99L, Hemoglobin 8.4L, Hematocrit 29.7L , Mean Corpuscular Volume 74L, Mean Corpuscular Hemoglobin 21.1L, Mean Corpuscular Hemoglobin Concent 28.4L, Red Cell Distribution Width 16.7H, Platelet Count 161, Mean Platelet Volume 7.3, Neutrophils (%) (Auto) 69.7, Lymphocytes (%) (Auto) 17.9L, Monocytes (%) (Auto) 10.6H, Eosinophils (%) (Auto ) 0.9, Basophils (%) (Auto) 0.9, Hemoglobin A [Pending], Hemoglobin A2 [Pending] , Hemoglobin C [Pending], Hemoglobin F () [Pending], Hemoglobin S [Pending] , Variant Hemoglobin [Pending], Hemoglobin Electrophoresis Interp [Pending], Hemoglobin Interpretation [Pending], Hemoglobin Solubility [Pending], Sodium Level 142, Potassium Level 3.3L, Chloride Level 106, Carbon Dioxide Level 28, Anion Gap 8, Blood Urea Nitrogen 12, Creatinine 0.7, Estimat Glomerular Filtration Rate > 60, Glucose Level 93, Calcium Level 8.2L, Magnesium Level 1.8 , Iron Level 258H, Total Iron Binding Capacity 428, Percent Iron Saturation 60H , Unsaturated Iron Binding 170, Ferritin 8, Total Bilirubin 1.5H, Direct Bilirubin 0.4H, Lactate Dehydrogenase 264H, Troponin I 0.052, Vitamin B12 Level 221, Vitamin D 25-Hydroxy [Pending], 25-Hydroxy Vitamin D2 [Pending], 25- Hydroxy Vitamin D3 [Pending], Folate 17.2, Homocystine 21.0H, Thyroid Stimulating Hormone (TSH) 1.168 08/18/17 18:25: Fibrinogen 175L 08/19/17 06:47: White Blood Count 3.3L, Red Blood Count 3.54L, Hemoglobin 8.1L, Hematocrit 26.1L , Mean Corpuscular Volume 74L, Mean Corpuscular Hemoglobin 23.0L, Mean Corpuscular Hemoglobin Concent 31.2L, Red Cell Distribution Width 17.3H, Platelet Count 163, Mean Platelet Volume 7.6, Neutrophils (%) (Auto) , Lymphocytes (%) (Auto) , Monocytes (%) (Auto) , Eosinophils (%) (Auto) , Basophils (%) (Auto) , Sodium Level 142, Potassium Level 4.5, Chloride Level 107 , Carbon Dioxide Level 30, Anion Gap 6, Blood Urea Nitrogen 12, Creatinine 0.7, Estimat Glomerular Filtration Rate > 60, Glucose Level 79, Calcium Level 8.2L, Magnesium Level 1.8, Iron Level 25L, Total Iron Binding Capacity 367, Percent Iron Saturation 7L, Unsaturated Iron Binding 342, Total Bilirubin 0.7, Direct Bilirubin 0.2, Troponin I 0.036, Vitamin B12 Level 7916H, Folate 18.7, Neutrophils % (Manual) [Pending], Lymphocytes % (Manual) [Pending], Platelet Estimate [Pending], Platelet Morphology [Pending], Prothrombin Time 11.0, Prothromb Time International Ratio 1.1, Activated Partial Thromboplast Time 27, Hemoglobin A1c 4.9, Aspartate Amino Transf (AST/SGOT) 25, Alanine Aminotransferase (ALT/SGPT) 30, Alkaline Phosphatase 95, Total Protein 5.6L, Albumin 2.7L, Triglycerides Level 44, Cholesterol Level 94, LDL Cholesterol 54, HDL Cholesterol 34L, Cholesterol/HDL Ratio 2.8L Height (Feet): 5 Height (Inches): 5.00 Weight (Pounds): 160 General Appearance: no apparent distress EENT: normal ENT inspection Neck: supple Cardiovascular: normal rate Respiratory/Chest: decreased breath sounds Abdomen: normal bowel sounds, non tender, soft Extremities: non-tender VANNESSA BETANCUR Aug 19, 2017 09:29
--- NOTE | 2017-08-19 10:37 | Endoscopy Procedure Note ---
Endoscopy Procedure Note Indication for Procedure: anemia Procedures Performed: EGD, colonoscopy Operative Findings/Diagnosis: gu Specimen: yes Pt Tolerated Procedure Well: Yes Estimated Blood Loss: none Anesthesiologist: shayan Anesthesia: MAC Implant(s) used?: No 50 yrs or older w/o bx or poly: Not Applicable 10yrs. F/U not recommended: Not Applicable VANNESSA BETANCUR Aug 19, 2017 10:37
[2017-08-19] MEDS ORDERED: DiphenhydrAMINE 50mg/ml Inj IVP PRN (11:00)
[2017-08-19] MEDS ORDERED: Midazolam 2mg/2ml Inj IVP PRN (11:00)
[2017-08-19] MEDS ORDERED: Atropine Inj 1mg/10ml Syr IV PRN (11:00)
[2017-08-19] MEDS ORDERED: fentaNYL 100 mcg/2 mL IV PRN (11:00)
--- NOTE | 2017-08-19 15:37 | Immediate Post-Op Evaluation ---
Immediate Post-Op Evalulation Immediate Post-Op Evalulation Procedure: egd/colonoscopy Date of Evaluation: Aug 19, 2017 Time of Evaluation: 11:07 IV Fluids: 0.9ns 150ml Blood Products: none Estimated Blood Loss: negligible Blood Pressure Systolic: 124 Blood Pressure Diastolic: 88 Pulse Rate: 57 Respiratory Rate: 18 O2 Sat by Pulse Oximetry: 100 Temperature (Fahrenheit): 97.3 Pain Score (1-10): 0 Nausea: No Vomiting: No Complications none Patient Status: awake, reacts, patent Hydration Status: adequate Drug: ABBY Crowley Aug 19, 2017 15:37
--- NOTE | 2017-08-19 15:38 | 48 Hour Post Anesthesia Eval ---
Post Anesthesia Evaluation Procedure: egd/colonoscopy Date of Evaluation: Aug 19, 2017 Time of Evaluation: 11:09 Blood Pressure Systolic: 131 0: 86 Pulse Rate: 60 Respiratory Rate: 18 Temperature (Fahrenheit): 97.3 O2 Sat by Pulse Oximetry: 99 Airway: patent Nausea: No Vomiting: No Pain Intensity: 0 Hydration Status: adequate Cardiopulmonary Status: stable Mental Status/LOC: patient returned to baseline Post-Anesthesia Complications: none Follow-up care needed: N/A ABBY VENTURA Aug 19, 2017 15:38
--- NOTE | 2017-08-19 17:31 | Procedure Note ---
DATE OF PROCEDURE: 08/19/2017 SURGEON: Rk Angulo M.D. PROCEDURE: Upper endoscopy with biopsy and colonoscopy. ANESTHESIOLOGIST: Dr. Dafne Villalobos. INSTRUMENT: Olympus adult flexible endoscope and colonoscope. INDICATION: Anemia. REASON FOR PROCEDURE: The procedure, risks, benefits, and possible consequences, including hemorrhage, aspiration, perforation and infection, and alternative treatments, were explained to the patient/legal guardian by Dr. Rk Angulo and the patient/legal guardian understood and accepted these risks. PROCEDURE: After informed consent was obtained and the patient was adequately sedated, Olympus upper endoscope was advanced mouth into the second portion of the duodenum and retroflexion was performed in the stomach. The patient with abnormal gastric findings. Gastric body and folds were very thickened and very prominent. 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 There was an ulcer in the distal body at the junction between the greater curvature of the body and antrum, this ulcer was clean based, no visible vessel, no adherent clot, measured roughly about a centimeter. Edge of this ulcer was biopsied. We also biopsied gastric body and gastric antrum. At this time, the upper endoscope was retrieved and the patient was turned over for colonoscopy. First, a rectal exam performed which was positive for internal hemorrhoids. Then, the scope was advanced from the rectum into the mid transverse colon. Given poor quality of prep, we could not advance it beyond this point. No obvious active bleeding in the colon at this time, although the prep is poor. There was some scattered diverticulosis. Retroflexion of rectum showed evidence of internal hemorrhoids. SUMMARY FINDINGS: 1. Gastric ulcer status post biopsy. 2. Prominent gastric folds, suspicious for malignancy status post biopsy. 3. Incomplete colonoscopy examination given the poor prep. 4. Diverticulosis. 5. Internal hemorrhoids. RECOMMENDATIONS: 1. Followup biopsy results and treat accordingly. 2. Check CEA level. 3. Check H. pylori serology. 4. Continue on PPI. I want to thank, Dr. Casanova for this kind referral. Rk Angulo M.D. DR: STALIN JOB#: [id number] CC: Dmitry Casanova M.D.; Fax#: [phone]
--- NOTE | 2017-08-19 17:52 | General Progress Note ---
Assessment/Plan Problem List: (1) Acute CVA of R parietal lobe (2) Severe anemia Assessment & Plan: Microcytic anemia ICD Codes: D64.9 - Anemia, unspecified SNOMED: 821822376 (3) Hypokalemia ICD Codes: E87.6 - Hypokalemia SNOMED: 93201634 (4) Acute blood loss anemia ICD Codes: D62 - Acute posthemorrhagic anemia SNOMED: 033294478 (5) Gastric ulcer ICD Codes: K25.9 - Gastric ulcer, unspecified as acute or chronic, without hemorrhage or perforation SNOMED: 607644643 Qualifiers: Status: stable Assessment/Plan Neuro consulted F/u MRI brain--confirms acute R parietal lobe CVA Neuro checks F/u carotid U/S F/u TTE ASA 325mg daily given CVA Check lipid panel, TSH, A1C Hematology consulted given severe anemia s/p 2U pRBC on 08/17/17 F/u B12/folate, Fe panel/ferritin GI consulted given severe anemia s/p EGD/colo on 08/19/17--showed gastric ulcer, prominent gastric folds suspicious for malignancy, incomplete colonoscopy prep Cont PPI F/u path biopsy Trend CBC, BMP Replete lytes Pain control, bowel regimen Supportive care PT/OT Niece requested transfer to [facility] as pt is [facility] pt but CM confirms that pt does not have active [facility] insurance CM consulted for d/c plan to ARU vs SNF DVT Prophylaxis: SCD Code Status: Full Hospital Classification Declaration: Based on this initial evaluation, and depending on the patient's clinical course, I anticipate that this patient will require hospitalization for 1-2 days for acute CVA, severe anemia and close respiratory/hemodynamic monitoring. Disposition: Once the patient is stable to leave the hospital, I anticipate the patient will likely be discharged to the following environment: home with HH vs SNF vs ARU Discussed with patient/family, nursing staff, SW/CM, GI, hematology, neuro regarding clinical status, treatment course, and disposition planning. D/w CM re dispo Time of note may not reflect time of encounter. Subjective Date patient seen: Aug 19, 2017 Time patient seen: 14:00 ROS Limited/Unobtainable: No Constitutional: Reports: no symptoms HEENT: Reports: no symptoms Cardiovascular: Reports: no symptoms Respiratory: Reports: no symptoms Gastrointestinal/Abdominal: Reports: no symptoms Genitourinary: Reports: no symptoms Neurologic/Psychiatric: Reports: no symptoms Endocrine: Reports: no symptoms Hematologic/Lymphatic: Reports: no symptoms Allergies: Coded Allergies: No Known Allergies (Unverified , 08/17/17) All Systems: reviewed and negative except above Subjective No acute o/n events s/p EGD/colo today Pt doing well. Denies f/c, n/v, d/c, chest pain, SOB Objective Last 24 Hour Vital Signs Date Time Temp Pulse Resp B/P (MAP) Pulse Ox O2 Delivery O2 Flow Rate FiO2 08/19/17 16:00 97.1 59 20 104/64 99 Room Air 08/19/17 15:38 60 18 99 08/19/17 15:37 57 18 100 08/19/17 12:00 97.5 70 19 139/84 100 Room Air 08/19/17 11:14 97.4 55 20 131/73 99 Room Air 08/19/17 11:05 54 20 124/88 99 Room Air 08/19/17 11:00 54 20 126/74 99 Nasal Cannula 3.0 08/19/17 10:55 97.3 56 20 121/78 99 Nasal Cannula 3.0 08/19/17 08:00 62 08/19/17 08:00 96.9 60 18 113/64 97 Room Air 08/19/17 04:19 98.5 61 18 124/64 97 Room Air 08/19/17 04:00 56 08/19/17 00:24 96.7 54 18 110/66 Room Air 08/19/17 00:00 55 08/18/17 20:56 97.0 59 18 101/67 100 Room Air 08/18/17 20:00 56 Intake and Output 08/18/17 08/19/17 19:00 07:00 Intake Total 1347 ml 850 ml Output Total 300 ml 600 ml Balance 1047 ml 250 ml Intake Oral 472 ml IV Total 875 ml 850 ml Output Urine Total 300 ml 600 ml # Voids 3 # Bowel Movements 1 Laboratory Tests 08/18/17 18:25: Fibrinogen 175L 08/19/17 06:47: White Blood Count 3.3L, Red Blood Count 3.54L, Hemoglobin 8.1L, Hematocrit 26.1L , Mean Corpuscular Volume 74L, Mean Corpuscular Hemoglobin 23.0L, Mean Corpuscular Hemoglobin Concent 31.2L, Red Cell Distribution Width 17.3H, Platelet Count 163, Mean Platelet Volume 7.6, Neutrophils (%) (Auto) , Lymphocytes (%) (Auto) , Monocytes (%) (Auto) , Eosinophils (%) (Auto) , Basophils (%) (Auto) , Differential Total Cells Counted 100, Neutrophils % ( Manual) 68, Lymphocytes % (Manual) 20, Monocytes % (Manual) 11H, Eosinophils % ( Manual) 0, Basophils % (Manual) 1, Band Neutrophils 0, Platelet Estimate Adequate, Platelet Morphology Normal, Hypochromasia 2+, Anisocytosis 1+, Microcytosis 2+, Prothrombin Time 11.0, Prothromb Time International Ratio 1.1, Activated Partial Thromboplast Time 27, Sodium Level 142, Potassium Level 4.5, Chloride Level 107, Carbon Dioxide Level 30, Anion Gap 6, Blood Urea Nitrogen 12 , Creatinine 0.7, Estimat Glomerular Filtration Rate > 60, Glucose Level 79, Hemoglobin A1c 4.9, Calcium Level 8.2L, Magnesium Level 1.8, Iron Level 25L, Total Iron Binding Capacity 367, Percent Iron Saturation 7L, Unsaturated Iron Binding 342, Total Bilirubin 0.7, Direct Bilirubin 0.2, Aspartate Amino Transf ( AST/SGOT) 25, Alanine Aminotransferase (ALT/SGPT) 30, Alkaline Phosphatase 95, Troponin I 0.036, Total Protein 5.6L, Albumin 2.7L, Triglycerides Level 44, Cholesterol Level 94, LDL Cholesterol 54, HDL Cholesterol 34L, Cholesterol/HDL Ratio 2.8L, Vitamin B12 Level 7916H, Folate 18.7, Hepatitis A IgM Antibody [ Pending], Hepatitis B Surface Antigen [Pending], Hepatitis B Core IgM Antibody [ Pending], Hepatitis C Antibody [Pending], HIV (1&2) Antibody Rapid Negative Height (Feet): 5 Height (Inches): 5.00 Weight (Pounds): 160 Objective General: alert, cooperative, no distress, appears stated age Head: normocephalic, without obvious abnormality, atraumatic Eyes: conjunctivae/corneas clear. PERRL, EOM's intact Throat: lips, mucosa, and tongue normal. MMM Neck: supple, symmetrical, trachea midline, and no JVD Lungs: clear to auscultation bilaterally Heart: regular rate and rhythm, S1, S2 normal, no murmur, click, rub or gallop Abdomen: soft, non-tender, non-distended, bowel sounds normal; no masses or organomegaly Extremities: extremities normal, atraumatic, no cyanosis or edema Pulses: 2+ and symmetric Skin: skin color, texture, turgor normal; no rashes or lesions Neurologic: grossly normal, no focal deficits except 4/5 motor strength for L finger extensors and iliopsoas and iliopsoas Smitha Lilly M.D. Aug 19, 2017 17:52
--- NOTE | 2017-08-19 18:27 | Neurology Progress Note ---
Interim History Interim History Interim History Mr. Collazo feels better. The mind is clear. He feels stronger. He has been eating well. The EGD/Colonoscopy revealed a gastritis, a gastric ulcer and possibly other gastric pathology.. He denies any new neurologic symptoms. Review of Systems Neuro Review of Systems Benign. Objective Physical Exam Last Vital Signs Date Time Temp Pulse Resp B/P (MAP) Pulse Ox O2 Delivery O2 Flow Rate FiO2 08/19/17 16:00 97.1 59 20 104/64 99 Room Air 08/19/17 11:00 3.0 Laboratory Tests Test 08/18/17 18:25 08/19/17 06:47 Fibrinogen 175 mg/dL (200-400) L White Blood Count 3.3 K/UL (4.8-10.8) L Red Blood Count 3.54 M/UL (4.70-6.10) L Hemoglobin 8.1 G/DL (14.2-18.0) L Hematocrit 26.1 % (42.0-52.0) L Mean Corpuscular Volume 74 FL (80-99) L Mean Corpuscular Hemoglobin 23.0 PG (27.0-31.0) L Mean Corpuscular Hemoglobin Concent 31.2 G/DL (32.0-36.0) L Red Cell Distribution Width 17.3 % (11.6-14.8) H Platelet Count 163 K/UL (150-450) Mean Platelet Volume 7.6 FL (6.5-10.1) Neutrophils (%) (Auto) % (45.0-75.0) Lymphocytes (%) (Auto) % (20.0-45.0) Monocytes (%) (Auto) % (1.0-10.0) Eosinophils (%) (Auto) % (0.0-3.0) Basophils (%) (Auto) % (0.0-2.0) Differential Total Cells Counted 100 Neutrophils % (Manual) 68 % (45-75) Lymphocytes % (Manual) 20 % (20-45) Monocytes % (Manual) 11 % (1-10) H Eosinophils % (Manual) 0 % (0-3) Basophils % (Manual) 1 % (0-2) Band Neutrophils 0 % (0-8) Platelet Estimate Adequate Platelet Morphology Normal Hypochromasia 2+ Anisocytosis 1+ Microcytosis 2+ Prothrombin Time 11.0 SEC (9.30-11.50) Prothromb Time International Ratio 1.1 (0.9-1.1) Activated Partial Thromboplast Time 27 SEC (23-33) Sodium Level 142 MMOL/L (136-145) Potassium Level 4.5 MMOL/L (3.5-5.1) Chloride Level 107 MMOL/L (98-107) Carbon Dioxide Level 30 MMOL/L (21-32) Anion Gap 6 mmol/L (5-15) Blood Urea Nitrogen 12 mg/dL (7-18) Creatinine 0.7 MG/DL (0.55-1.30) Estimat Glomerular Filtration Rate > 60 mL/min (>60) Glucose Level 79 MG/DL (74-106) Hemoglobin A1c 4.9 % (4.3-6.0) Calcium Level 8.2 MG/DL (8.5-10.1) L Magnesium Level 1.8 MG/DL (1.8-2.4) Iron Level 25 ug/dL (50-175) L Total Iron Binding Capacity 367 ug/dL (250-450) Percent Iron Saturation 7 % (15-50) L Unsaturated Iron Binding 342 ug/dL (112-346) Total Bilirubin 0.7 MG/DL (0.2-1.0) Direct Bilirubin 0.2 MG/DL (0.0-0.3) Aspartate Amino Transf (AST/SGOT) 25 U/L (15-37) Alanine Aminotransferase (ALT/SGPT) 30 U/L (12-78) Alkaline Phosphatase 95 U/L (46-116) Troponin I 0.036 ng/mL (0.000-0.056) Total Protein 5.6 G/DL (6.4-8.2) L Albumin 2.7 G/DL (3.4-5.0) L Triglycerides Level 44 MG/DL (30-150) Cholesterol Level 94 MG/DL (< 200) LDL Cholesterol 54 mg/dL (<100) HDL Cholesterol 34 MG/DL (40-60) L Cholesterol/HDL Ratio 2.8 (3.3-4.4) L Vitamin B12 Level 7916 PG/ML (193-986) H Folate 18.7 NG/ML (8.6-58.9) Hepatitis A IgM Antibody Pending Hepatitis B Surface Antigen Pending Hepatitis B Core IgM Antibody Pending Hepatitis C Antibody Pending HIV (1&2) Antibody Rapid Negative (NEGATIVE) Neurologic Exam Objective PHYSICAL EXAMINATION: GENERAL: He is a well-developed, relatively well-nourished, pleasant, gentleman, lying in bed, in no acute distress. HEAD: Normocephalic and atraumatic. NECK: No neck rigidity was observed. EENT: Benign. NEUROLOGICAL EXAMINATION: MENTAL STATUS EXAMINATION: He was awake and alert. He was oriented to person, place, and time. He was able to recall 3/3 words immediately after 1 minute and after 3 minutes on the second trial. He was able to remember presidents, Trump through Golden Amarjit spontaneously, but needed hints to remember through [employer] Senior. His mathematical skills were impaired. His visuospatial function was also impaired. SPEECH: He had no dysarthria. LANGUAGE: He had no aphasia in [place]ish. CRANIAL NERVE EXAMINATION: II: The visual archuleta were intact on confrontation testing. III, IV & : External ocular movements were full and the pupils 3 mm in diameter, equal, round, regular, and reactive to light. V: He had normal facial sensations and the temporales, masseters, and pterygoids functioned normally. VII: He had a mild left seventh central facial paresis. VIII: He was able to hear well bilaterally and had no nystagmus. IX: The palate moved symmetrically on phonation. X: He had no hoarseness of voice. XI: The sternocleidomastoids and trapezii functioned normally. XII: The tongue was in the midline without any fasciculations or atrophy. MOTOR SYSTEM: The tone was normal in all four extremities. Examination of muscle mass revealed no focal wasting. Examination of power revealed G 5/5 power except for G 4+/5 power in the left finger extensors and iliopsoas. SENSORY EXAMINATION: He had intact sensations to pinprick, light touch, and graphesthesia. COORDINATION: He performed well on [id number] and [id number] testing. Rapid alternating movements, however, were quite clumsy on the left side compared to the right. REFLEXES: 2+ on the right and 2++ on the left in the biceps, triceps, and brachioradialis, 2+ on the right and 3+ on the left at the knees, 1+ at both ankles. The plantar responses were flexor bilaterally. STANCE: He stood up with contact guard. GAIT: He walked with a left hemiparetic gait with contact guard. Impression/Recommendations Diagnostic Impression 1. Mr. Hany Collazo is a 67-year-old, right-handed, gentleman, with a benign past history, who approximately 3 days prior to admission noted some progressive left-sided weakness. As a result of that, he presented to the [facility] Emergency Room. He was noted to be significantly anemic , but a CT scan of the brain was benign. 2. He feels much better today. He feels stronger and has had no new neurologic symptoms. 3. On neurological examination at this time, he does have mild problems with recent and remote memory, visuospatial function, and higher cognitive function. He also has left hemiparesis involving the face, upper and lower extremities, left-sided hyperreflexia, and left hemiparetic gait. 4. The MRI scan of the brain performed on 08/18/2017 reveals a right-sided predominantly parietal infarct with minimal involvement of the frontal area. 5. Laboratory data revealed that his hemoglobin on admission was at 6.5 G. He had a normal INR. The chemistry panel revealed that his BUN was elevated to 19. His albumin was low at 3.0. His vitamin B12 level was low at 221. His folic acid level was 17.2 and his bilirubin was elevated to 1.5. His urinalysis revealed 1+ leukocyte esterase, 0 to 2 red blood cells, and 2 to 4 white blood cells per high-power field. His homocystine is elevated to 21. 6. 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 He also had a severe anemia and vitamin B12 deficiency. 7. His GI work up revealed a gastric ulcer status post biopsy, prominent gastric folds, suspicious for malignancy status post biopsy, incomplete colonoscopy examination given the poor prep, diverticulosis, and internal hemorrhoids. Recommendations 1. Continue present management. 2. The patient's hemoglobin should be brought up to greater than 10 G. 3. Vitamin B12 1000 mcg subcutaneously daily for 3 days and then monthly. 4. Folic acid 1 mg daily for elevated homocystine. 5. GI management as per Dr. Angulo. 6. Physical and occupational therapy should be started to rehabilitate him. 7. Can decrease aspirin to 81 mg q day in light of gastritis. Chavez Ontiveros M.D., M.S.P.H. CHAVEZ ONTIVEROS Aug 19, 2017 18:27
[2017-08-19] MEDS: Vitamin B12 1000mcg/ml Inj SUBQ SCH (20:35)
[2017-08-19] MEDS: Iron Sucrose 100 MG in NS 55 ML IV SCH (21:00)
[2017-08-20 00:25] VITALS: BP 109/63
[2017-08-20 04:41] VITALS: BP 109/66
[2017-08-20 08:00] VITALS: BP 114/73
[2017-08-20 08:04] LABS: BASOPHILS % (AUTO) 0.5 % (0.0-2.0); EOSINOPHILS % (AUTO) 0.4 % (0.0-3.0); HEMATOCRIT 25.9 % (42.0-52.0); LYMPHOCYTES % (AUTO) 14.8 % (20.0-45.0); MEAN CORPUSCULAR VOLUME 73 FL (80-99); NEUTROPHILS % (AUTO) 72.4 % (45.0-75.0); PLATELET COUNT 146 K/UL (150-450); RED BLOOD COUNT 3.53 M/UL (4.70-6.10); RED CELL DISTRIBUTION WIDTH 17.3 % (11.6-14.8); WHITE BLOOD COUNT 4.3 K/UL (4.8-10.8)
[2017-08-20 08:08] LABS: ANION GAP 4 mmol/L (5-15); BLOOD UREA NITROGEN 20 mg/dL (7-18); CALCIUM 7.8 MG/DL (8.5-10.1); CARBON DIOXIDE 28 MMOL/L (21-32); CHLORIDE 107 MMOL/L (98-107); CREATININE 0.7 MG/DL (0.55-1.30); SODIUM 139 MMOL/L (136-145)
[2017-08-20] MEDS: D5 1/2NS w/KCl 20mEq 1,000 ML IV SCH ×2 (10:19→20:34)
[2017-08-20] MEDS: Docusate 100mg cap ORAL SCH ×2 (10:20→20:34)
[2017-08-20] MEDS: Pantoprazole Inj IV SCH (10:20)
[2017-08-20 12:00] VITALS: BP 112/68
--- NOTE | 2017-08-20 12:03 | Internal Med Progress Note ---
Subjective Physician Name Yari Cameron Attending Physician Dmitry Casanova Current Medications Medications (Trade) Dose Ordered Sig/Lizzy Route PRN Reason Start Time Stop Time Status Last Admin Dose Admin Acetaminophen (Tylenol) 650 mg Q4H PRN ORAL Mild Pain (Pain Scale 1-3) 08/18/17 01:45 09/17/17 01:44 Acetaminophen (Tylenol) 650 mg Q4H PRN ORAL fever 08/18/17 01:45 09/17/17 01:44 Aspirin (ASA) 325 mg DAILY ORAL 08/18/17 14:00 09/17/17 13:59 08/20/17 10:20 Bisacodyl (Dulcolax) 10 mg DAILYPRN PRN RECTAL Constipation 08/18/17 01:45 09/17/17 01:44 Cyanocobalamin (Vitamin B12) 1,000 mcg QHS SUBQ 08/18/17 21:00 08/20/17 21:01 08/19/17 20:35 Dextrose (Dextrose 50%) STAT PRN IV Hypoglycemia 08/18/17 01:45 09/17/17 01:44 Dextrose/ Electrolytes 1,000 ml @ 75 mls/hr [id number] IV 08/18/17 03:00 09/17/17 02:59 08/20/17 10:19 Docusate Sodium (Colace) 100 mg EVERY 12 HOURS ORAL 08/18/17 09:00 09/17/17 08:59 08/20/17 10:20 Folic Acid (Folate) 1 mg DAILY ORAL 08/19/17 18:30 09/18/17 18:29 08/20/17 10:20 Iron Sucrose 100 mg/Sodium Chloride 60 ml @ 240 mls/hr BEDTIME IV 08/19/17 21:00 08/23/17 21:14 08/19/17 21:00 Ondansetron HCl (Zofran) 4 mg Q6H PRN IVP Nausea & Vomiting 08/18/17 01:45 09/17/17 01:44 Pantoprazole (Protonix) 40 mg DAILY IV 08/18/17 09:00 09/17/17 08:59 08/20/17 10:20 Polyethylene Glycol (Miralax) 17 gm DAILYPRN PRN ORAL Constipation 08/18/17 01:45 09/17/17 01:44 Allergies: Coded Allergies: No Known Allergies (Unverified , 08/17/17) Objective Last Vital Signs Date Time Temp Pulse Resp B/P (MAP) Pulse Ox O2 Delivery O2 Flow Rate FiO2 08/20/17 08:00 97.9 61 20 114/73 100 Room Air 08/19/17 11:00 3.0 Laboratory Tests Test 08/20/17 07:15 White Blood Count 4.3 K/UL (4.8-10.8) L Red Blood Count 3.53 M/UL (4.70-6.10) L Hemoglobin 8.0 G/DL (14.2-18.0) L Hematocrit 25.9 % (42.0-52.0) L Mean Corpuscular Volume 73 FL (80-99) L Mean Corpuscular Hemoglobin 22.6 PG (27.0-31.0) L Mean Corpuscular Hemoglobin Concent 30.8 G/DL (32.0-36.0) L Red Cell Distribution Width 17.3 % (11.6-14.8) H Platelet Count 146 K/UL (150-450) L Mean Platelet Volume 7.2 FL (6.5-10.1) Neutrophils (%) (Auto) 72.4 % (45.0-75.0) Lymphocytes (%) (Auto) 14.8 % (20.0-45.0) L Monocytes (%) (Auto) 12.0 % (1.0-10.0) H Eosinophils (%) (Auto) 0.4 % (0.0-3.0) Basophils (%) (Auto) 0.5 % (0.0-2.0) Sodium Level 139 MMOL/L (136-145) Potassium Level 4.0 MMOL/L (3.5-5.1) Chloride Level 107 MMOL/L (98-107) Carbon Dioxide Level 28 MMOL/L (21-32) Anion Gap 4 mmol/L (5-15) L Blood Urea Nitrogen 20 mg/dL (7-18) H Creatinine 0.7 MG/DL (0.55-1.30) Estimat Glomerular Filtration Rate > 60 mL/min (>60) Glucose Level 83 MG/DL (74-106) Calcium Level 7.8 MG/DL (8.5-10.1) L Helicobacter pylori IgG Antibody Pending Intake and Output 1/12/18 1/13/18 19:00 07:00 Intake Total 1273 ml 885 ml Output Total 400 ml Balance 1273 ml 485 ml Intake Oral 236 ml IV Total 1037 ml 885 ml Output Urine Total 400 ml # Voids 2 # Bowel Movements 1 Assessment/Plan Assessment/Plan Assessment/Plan Problem List: (1) Acute CVA of R parietal lobe (2) Severe anemia Assessment & Plan: Microcytic anemia ICD Codes: D64.9 - Anemia, unspecified SNOMED: 846833797 (3) Hypokalemia ICD Codes: E87.6 - Hypokalemia SNOMED: 66365713 (4) Acute blood loss anemia ICD Codes: D62 - Acute posthemorrhagic anemia SNOMED: 313161339 (5) Gastric ulcer ICD Codes: K25.9 - Gastric ulcer, unspecified as acute or chronic, without hemorrhage or perforation SNOMED: 288126708 Qualifiers: Status: stable Assessment/Plan Neuro consulted F/u MRI brain--confirms acute R parietal lobe CVA Neuro checks F/u carotid U/S F/u TTE ASA 325mg daily given CVA Check lipid panel, TSH, A1C Hematology consulted given severe anemia s/p 2U pRBC on 08/17/17 F/u B12/folate, Fe panel/ferritin GI consulted given severe anemia s/p EGD/colo on 08/19/17--showed gastric ulcer, prominent gastric folds suspicious for malignancy, incomplete colonoscopy prep Cont PPI F/u path biopsy Trend CBC, BMP Replete lytes Pain control, bowel regimen Supportive care PT/OT Niece requested transfer to [place] as pt is [place] pt but CM confirms that pt does not have active [place] insurance CM consulted for d/c plan to ARU vs SNF DVT Prophylaxis: SCD Code Status: Full Hospital Classification Declaration: Based on this initial evaluation, and depending on the patient's clinical course, I anticipate that this patient will require hospitalization for 1-2 days for acute CVA, severe anemia and close respiratory/hemodynamic monitoring. Disposition: Once the patient is stable to leave the hospital, I anticipate the patient will likely be discharged to the following environment: home with HH vs SNF vs ARU Discussed with patient/family, nursing staff, SW/CM, GI, hematology, neuro regarding clinical status, treatment course, and disposition planning. D/w CM re dispo Time of note may not reflect time of encounter. Subjective Date patient seen: Aug 19, 2017 Time patient seen: 14:00 ROS Limited/Unobtainable: No Constitutional: Reports: no symptoms HEENT: Reports: no symptoms Cardiovascular: Reports: no symptoms Respiratory: Reports: no symptoms Gastrointestinal/Abdominal: Reports: no symptoms Genitourinary: Reports: no symptoms Neurologic/Psychiatric: Reports: no symptoms Endocrine: Reports: no symptoms Hematologic/Lymphatic: Reports: no symptoms Allergies: Coded Allergies: No Known Allergies (Unverified , 08/17/17) All Systems: reviewed and negative except above Subjective No acute o/n events s/p EGD/colo today Pt doing well. Denies f/c, n/v, d/c, chest pain, SOB Objective Last 24 Hour Vital Signs Date Time Temp Pulse Resp B/P (MAP) Pulse Ox O2 Delivery O2 Flow Rate FiO2 08/19/17 16:00 97.1 59 20 104/64 99 Room Air 08/19/17 15:38 60 18 99 08/19/17 15:37 57 18 100 08/19/17 12:00 97.5 70 19 139/84 100 Room Air 08/19/17 11:14 97.4 55 20 131/73 99 Room Air 08/19/17 11:05 54 20 124/88 99 Room Air 08/19/17 11:00 54 20 126/74 99 Nasal Cannula 3.0 08/19/17 10:55 97.3 56 20 121/78 99 Nasal Cannula 3.0 08/19/17 08:00 62 08/19/17 08:00 96.9 60 18 113/64 97 Room Air 08/19/17 04:19 98.5 61 18 124/64 97 Room Air 08/19/17 04:00 56 08/19/17 00:24 96.7 54 18 110/66 Room Air 08/19/17 00:00 55 08/18/17 20:56 97.0 59 18 101/67 100 Room Air 08/18/17 20:00 56 Intake and Output 08/18/17 08/19/17 19:00 07:00 Intake Total 1347 ml 850 ml Output Total 300 ml 600 ml Balance 1047 ml 250 ml Intake Oral 472 ml IV Total 875 ml 850 ml Output Urine Total 300 ml 600 ml # Voids 3 # Bowel Movements 1 Laboratory Tests 1/11/18 18:25: Fibrinogen 175L 08/19/17 06:47: White Blood Count 3.3L, Red Blood Count 3.54L, Hemoglobin 8.1L, Hematocrit 26.1L , Mean Corpuscular Volume 74L, Mean Corpuscular Hemoglobin 23.0L, Mean Corpuscular Hemoglobin Concent 31.2L, Red Cell Distribution Width 17.3H, Platelet Count 163, Mean Platelet Volume 7.6, Neutrophils (%) (Auto) , Lymphocytes (%) (Auto) , Monocytes (%) (Auto) , Eosinophils (%) (Auto) , Basophils (%) (Auto) , Differential Total Cells Counted 100, Neutrophils % ( Manual) 68, Lymphocytes % (Manual) 20, Monocytes % (Manual) 11H, Eosinophils % ( Manual) 0, Basophils % (Manual) 1, Band Neutrophils 0, Platelet Estimate Adequate, Platelet Morphology Normal, Hypochromasia 2+, Anisocytosis 1+, Microcytosis 2+, Prothrombin Time 11.0, Prothromb Time International Ratio 1.1, Activated Partial Thromboplast Time 27, Sodium Level 142, Potassium Level 4.5, Chloride Level 107, Carbon Dioxide Level 30, Anion Gap 6, Blood Urea Nitrogen 12 , Creatinine 0.7, Estimat Glomerular Filtration Rate > 60, Glucose Level 79, Hemoglobin A1c 4.9, Calcium Level 8.2L, Magnesium Level 1.8, Iron Level 25L, Total Iron Binding Capacity 367, Percent Iron Saturation 7L, Unsaturated Iron Binding 342, Total Bilirubin 0.7, Direct Bilirubin 0.2, Aspartate Amino Transf ( AST/SGOT) 25, Alanine Aminotransferase (ALT/SGPT) 30, Alkaline Phosphatase 95, Troponin I 0.036, Total Protein 5.6L, Albumin 2.7L, Triglycerides Level 44, Cholesterol Level 94, LDL Cholesterol 54, HDL Cholesterol 34L, Cholesterol/HDL Ratio 2.8L, Vitamin B12 Level 7916H, Folate 18.7, Hepatitis A IgM Antibody [ Pending], Hepatitis B Surface Antigen [Pending], Hepatitis B Core IgM Antibody [ Pending], Hepatitis C Antibody [Pending], HIV (1&2) Antibody Rapid Negative Height (Feet): 5 Height (Inches): 5.00 Weight (Pounds): 160 Objective General: alert, cooperative, no distress, appears stated age Head: normocephalic, without obvious abnormality, atraumatic Eyes: conjunctivae/corneas clear. PERRL, EOM's intact Throat: lips, mucosa, and tongue normal. MMM Neck: supple, symmetrical, trachea midline, and no JVD Lungs: clear to auscultation bilaterally Heart: regular rate and rhythm, S1, S2 normal, no murmur, click, rub or gallop Abdomen: soft, non-tender, non-distended, bowel sounds normal; no masses or organomegaly Extremities: extremities normal, atraumatic, no cyanosis or edema Pulses: 2+ and symmetric Skin: skin color, texture, turgor normal; no rashes or lesions Neurologic: grossly normal, no focal deficits except 4/5 motor strength for L finger extensors and iliopsoas and iliopsoas Yari Cameron M.D. Aug 20, 2017 12:03
--- NOTE | 2017-08-20 14:29 | General Progress Note ---
Assessment/Plan Assessment/Plan Assessment - Anemia - Gastric Ulcer - CVA Recommendations - PPI - po diet at [place] - check and treat HP if (+) - IV Fe Subjective Allergies: Coded Allergies: No Known Allergies (Unverified , 08/17/17) Subjective Feels well no abdominal complaints tolerating PO Objective Last 24 Hour Vital Signs Date Time Temp Pulse Resp B/P (MAP) Pulse Ox O2 Delivery O2 Flow Rate FiO2 08/20/17 08:00 97.9 61 20 114/73 100 Room Air 08/20/17 04:41 97.5 69 18 109/66 97 Room Air 08/20/17 04:00 58 08/20/17 00:25 97.9 60 18 109/63 97 Room Air 08/19/17 20:19 98.9 60 18 100/63 Room Air 08/19/17 16:00 97.1 59 20 104/64 99 Room Air 08/19/17 16:00 62 08/19/17 15:38 60 18 99 08/19/17 15:37 57 18 100 Intake and Output 08/19/17 08/20/17 19:00 07:00 Intake Total 1273 ml 885 ml Output Total 400 ml Balance 1273 ml 485 ml Intake Oral 236 ml IV Total 1037 ml 885 ml Output Urine Total 400 ml # Voids 2 # Bowel Movements 1 Laboratory Tests 08/20/17 07:15: White Blood Count 4.3L, Red Blood Count 3.53L, Hemoglobin 8.0L, Hematocrit 25.9L , Mean Corpuscular Volume 73L, Mean Corpuscular Hemoglobin 22.6L, Mean Corpuscular Hemoglobin Concent 30.8L, Red Cell Distribution Width 17.3H, Platelet Count 146L, Mean Platelet Volume 7.2, Neutrophils (%) (Auto) 72.4, Lymphocytes (%) (Auto) 14.8L, Monocytes (%) (Auto) 12.0H, Eosinophils (%) (Auto ) 0.4, Basophils (%) (Auto) 0.5, Sodium Level 139, Potassium Level 4.0, Chloride Level 107, Carbon Dioxide Level 28, Anion Gap 4L, Blood Urea Nitrogen 20H, Creatinine 0.7, Estimat Glomerular Filtration Rate > 60, Glucose Level 83, Calcium Level 7.8L, Helicobacter pylori IgG Antibody [Pending] Height (Feet): 5 Height (Inches): 5.00 Weight (Pounds): 160 Objective WDWN NCAT supple CTA RRR Soft NT no edema NATALIO PAZ Aug 20, 2017 14:29
--- NOTE | 2017-08-20 15:27 | Cardiology Report ---
APPROVED REPORT EKG Measurement Heart [id number] Normal sinus rhythm Normal ECG
[2017-08-20 16:00] VITALS: BP 119/75
[2017-08-20] MEDS ORDERED: NS 275ml ONE (16:45)
[2017-08-20] MEDS ORDERED: Tubing Blood Filter IV ONE (16:45)
--- NOTE | 2017-08-20 17:55 | Neurology Progress Note ---
Interim History Interim History Interim History Mr. Collazo feels well today. He is feeling more energetic. The mind is clear. He feels stronger. He has been eating well. He did some walking earlier and was steadier on his feet. He denies any new neurologic symptoms. Review of Systems Neuro Review of Systems Benign. Objective Physical Exam Last Vital Signs Date Time Temp Pulse Resp B/P (MAP) Pulse Ox O2 Delivery O2 Flow Rate FiO2 08/20/17 16:00 98.1 78 20 119/75 100 Room Air 08/19/17 11:00 3.0 Laboratory Tests Test 08/20/17 07:15 White Blood Count 4.3 K/UL (4.8-10.8) L Red Blood Count 3.53 M/UL (4.70-6.10) L Hemoglobin 8.0 G/DL (14.2-18.0) L Hematocrit 25.9 % (42.0-52.0) L Mean Corpuscular Volume 73 FL (80-99) L Mean Corpuscular Hemoglobin 22.6 PG (27.0-31.0) L Mean Corpuscular Hemoglobin Concent 30.8 G/DL (32.0-36.0) L Red Cell Distribution Width 17.3 % (11.6-14.8) H Platelet Count 146 K/UL (150-450) L Mean Platelet Volume 7.2 FL (6.5-10.1) Neutrophils (%) (Auto) 72.4 % (45.0-75.0) Lymphocytes (%) (Auto) 14.8 % (20.0-45.0) L Monocytes (%) (Auto) 12.0 % (1.0-10.0) H Eosinophils (%) (Auto) 0.4 % (0.0-3.0) Basophils (%) (Auto) 0.5 % (0.0-2.0) Sodium Level 139 MMOL/L (136-145) Potassium Level 4.0 MMOL/L (3.5-5.1) Chloride Level 107 MMOL/L (98-107) Carbon Dioxide Level 28 MMOL/L (21-32) Anion Gap 4 mmol/L (5-15) L Blood Urea Nitrogen 20 mg/dL (7-18) H Creatinine 0.7 MG/DL (0.55-1.30) Estimat Glomerular Filtration Rate > 60 mL/min (>60) Glucose Level 83 MG/DL (74-106) Calcium Level 7.8 MG/DL (8.5-10.1) L Helicobacter pylori IgG Antibody Pending Neurologic Exam Objective PHYSICAL EXAMINATION: GENERAL: He is a well-developed, relatively well-nourished, pleasant, gentleman, lying in bed, in no acute distress. HEAD: Normocephalic and atraumatic. NECK: No neck rigidity was observed. EENT: Benign. NEUROLOGICAL EXAMINATION: MENTAL STATUS EXAMINATION: He was awake and alert. He was oriented to person, place, and time. He was able to recall 3/3 words immediately after 1 minute and after 3 minutes on the second trial. He was able to remember presidents, Trump through Golden Amarjit spontaneously, but needed hints to remember through [employer] Senior. His mathematical skills were impaired. His visuospatial function was also impaired. SPEECH: He had no dysarthria. LANGUAGE: He had no aphasia in Portuguese. CRANIAL NERVE EXAMINATION: II: The visual archuleta were intact on confrontation testing. III, IV & : External ocular movements were full and the pupils 3 mm in diameter, equal, round, regular, and reactive to light. V: He had normal facial sensations and the temporales, masseters, and pterygoids functioned normally. VII: He had a mild left seventh central facial paresis. VIII: He was able to hear well bilaterally and had no nystagmus. IX: The palate moved symmetrically on phonation. X: He had no hoarseness of voice. XI: The sternocleidomastoids and trapezii functioned normally. XII: The tongue was in the midline without any fasciculations or atrophy. MOTOR SYSTEM: The tone was normal in all four extremities. Examination of muscle mass revealed no focal wasting. Examination of power revealed G 5/5 power except for G 4+/5 power in the left finger extensors and iliopsoas. SENSORY EXAMINATION: He had intact sensations to pinprick, light touch, and graphesthesia. COORDINATION: He performed well on ezmtmy-ba-spdy and lidm-ej-zrgm testing. Rapid alternating movements, however, were quite clumsy on the left side compared to the right. REFLEXES: 2+ on the right and 2++ on the left in the biceps, triceps, and brachioradialis, 2+ on the right and 3+ on the left at the knees, 1+ at both ankles. The plantar responses were flexor bilaterally. STANCE: He stood up with contact guard. GAIT: He walked with a left hemiparetic gait with contact guard. Impression/Recommendations Diagnostic Impression 1. Mr. Hany Collazo is a 67-year-old, right-handed, gentleman, with a benign past history, who approximately 3 days prior to admission noted some progressive left-sided weakness. As a result of that, he presented to the [facility] Emergency Room. He was noted to be significantly anemic , but a CT scan of the brain was benign. 2. He feels well today. He feels stronger, is steadier on his feet and has had no new neurologic symptoms. 3. On neurological examination at this time, he does have mild problems with recent and remote memory, visuospatial function, and higher cognitive function. He also has left hemiparesis involving the face, upper and lower extremities, left-sided hyperreflexia, and left hemiparetic gait. 4. The MRI scan of the brain performed on 08/18/2017 reveals a right-sided predominantly parietal infarct with minimal involvement of the frontal area. 5. Laboratory data revealed that his hemoglobin on admission was at 6.5 G. He had a normal INR. The chemistry panel revealed that his BUN was elevated to 19. His albumin was low at 3.0. His vitamin B12 level was low at 221. His folic acid level was 17.2 and his bilirubin was elevated to 1.5. His urinalysis revealed 1+ leukocyte esterase, 0 to 2 red blood cells, and 2 to 4 white blood cells per high-power field. His homocystine is elevated to 21. 6. 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 He also had a severe anemia and vitamin B12 deficiency. 7. His GI work up revealed a gastric ulcer status post biopsy, prominent gastric folds, suspicious for malignancy status post biopsy, incomplete colonoscopy examination given the poor prep, diverticulosis, and internal hemorrhoids. Recommendations 1. Continue present management. 2. The patient's hemoglobin should be brought up to greater than 10 G. 3. Vitamin B12 1000 mcg subcutaneously daily for 3 days and then monthly. 4. Folic acid 1 mg daily for elevated homocystine. 5. GI management as per Dr. Angulo. 6. Physical and occupational therapy should be started to rehabilitate him. 7. Can decrease aspirin to 81 mg q day in light of gastritis. Chavez Ontiveros M.D., M.S.P.H. CHAVEZ ONTIVEROS Aug 20, 2017 17:55
[2017-08-20 20:00] VITALS: BP 107/57
[2017-08-20] MEDS: Iron Sucrose 100 MG in NS 55 ML IV SCH (20:33)
[2017-08-20] MEDS: Vitamin B12 1000mcg/ml Inj SUBQ SCH (20:34)
[2017-08-21 00:16] VITALS: BP 108/60
[2017-08-21 04:00] VITALS: BP 106/65
[2017-08-21] MEDS: D5 1/2NS w/KCl 20mEq 1,000 ML IV SCH ×2 (04:23→18:38)
[2017-08-21 07:35] LABS: BASOPHILS % (AUTO) 0.7 % (0.0-2.0); EOSINOPHILS % (AUTO) 0.5 % (0.0-3.0); HEMATOCRIT 25.6 % (42.0-52.0); LYMPHOCYTES % (AUTO) 14.5 % (20.0-45.0); MEAN CORPUSCULAR VOLUME 74 FL (80-99); MONOCYTES % (AUTO) 11.8 % (1.0-10.0); NEUTROPHILS % (AUTO) 72.5 % (45.0-75.0); PLATELET COUNT 152 K/UL (150-450); RED BLOOD COUNT 3.48 M/UL (4.70-6.10); RED CELL DISTRIBUTION WIDTH 17.6 % (11.6-14.8); WHITE BLOOD COUNT 5.1 K/UL (4.8-10.8)
[2017-08-21 08:00] VITALS: BP 105/67
[2017-08-21 08:24] LABS: ALANINE AMINOTRANSFERASE 23 U/L (12-78); ALBUMIN 2.5 G/DL (3.4-5.0); ALBUMIN/GLOBULIN RATIO 0.8 (1.0-2.7); ALKALINE PHOSPHATASE 94 U/L (46-116); ANION GAP 3 mmol/L (5-15); ASPARTATE AMINO TRANSFERASE 22 U/L (15-37); BILIRUBIN,TOTAL 0.4 MG/DL (0.2-1.0); BLOOD UREA NITROGEN 22 mg/dL (7-18); CALCIUM 8.2 MG/DL (8.5-10.1); CARBON DIOXIDE 28 MMOL/L (21-32); CHLORIDE 108 MMOL/L (98-107); CREATININE 0.6 MG/DL (0.55-1.30); POTASSIUM 4.9 MMOL/L (3.5-5.1); SODIUM 139 MMOL/L (136-145)
[2017-08-21] MEDS: Docusate 100mg cap ORAL SCH ×2 (09:00→20:19)
[2017-08-21] MEDS: Pantoprazole Inj IV SCH (09:01)
[2017-08-21 12:00] VITALS: BP 134/78
--- NOTE | 2017-08-21 12:29 | General Progress Note ---
Assessment/Plan Assessment/Plan # Anemia of iron deficiency - continue patient on iv iron, ferritin is low and tibc elevated --> total of 5 doses of iv iron ordered --> F/u path biopsy # Leukopenia is likely medication related, hepatitis and hiv are both negative, us of the abdomen reviewed # Stroke of parietal lobe Right side --> neuro checks, f/u carotid U/S, f/u TTE # Gastric ulceration --> s/p EGD/colo on 08/19/17--showed gastric ulcer, prominent gastric folds suspicious for malignancy, incomplete colonoscopy prep --> Cont PPI Subjective Constitutional: Denies: no symptoms, chills, diaphoresis, fever, malaise, weakness, other HEENT: Denies: no symptoms, eye pain, blurred vision, tearing, double vision, ear pain, ear discharge, nose pain, nose congestion, throat pain, throat swelling, mouth pain, mouth swelling, other Cardiovascular: Denies: no symptoms, chest pain, edema, irregular heart rate, lightheadedness, palpitations, syncope, other Respiratory: Denies: no symptoms, cough, orthopnea, shortness of breath, SOB with excertion, SOB at rest, sputum, stridor, wheezing, other Gastrointestinal/Abdominal: Denies: no symptoms, abdomen distended, abdominal pain, black stools, tarry stools, blood in stool, constipated, diarrhea, difficulty swallowing, nausea, poor appetite, poor fluid intake, rectal bleeding , vomiting, other Genitourinary: Denies: no symptoms, burning, discharge, frequency, flank pain, hematuria, incontinence, pain, urgency, other Neurologic/Psychiatric: Denies: no symptoms, anxiety, depressed, emotional problems, headache, numbness, paresthesia, pre-existing deficit, seizure, tingling, tremors, weakness, other Endocrine: Denies: no symptoms, excessive sweating, flushing, intolerance to cold, intolerance to heat, increased hunger, increased thirst, increased urine, unexplained weight gain, unexplained weight loss, other Hematologic/Lymphatic: Denies: no symptoms, anemia, easy bleeding, easy bruising, other Allergies: Coded Allergies: No Known Allergies (Unverified , 08/17/17) Subjective nad on iv iron Objective Last 24 Hour Vital Signs Date Time Temp Pulse Resp B/P (MAP) Pulse Ox O2 Delivery O2 Flow Rate FiO2 08/21/17 08:00 96.3 73 20 105/67 99 Room Air 08/21/17 08:00 83 08/21/17 04:00 97.3 67 20 106/65 99 Room Air 08/21/17 03:39 60 08/21/17 00:16 98.0 61 20 108/60 99 Room Air 08/20/17 23:46 67 08/20/17 20:40 69 08/20/17 20:00 97.3 67 20 107/57 97 Room Air 08/20/17 16:00 98.1 78 20 119/75 100 Room Air 08/20/17 16:00 63 Intake and Output 08/20/17 08/21/17 19:00 07:00 Intake Total 480 ml 1111 ml Output Total 300 ml 600 ml Balance 180 ml 511 ml Intake Oral 480 ml IV Total 1111 ml Output Urine Total 300 ml 600 ml # Voids 1 3 # Bowel Movements 1 1 Laboratory Tests 08/21/17 06:45: White Blood Count 5.1, Red Blood Count 3.48L, Hemoglobin 8.0L, Hematocrit 25.6L , Mean Corpuscular Volume 74L, Mean Corpuscular Hemoglobin 23.2L, Mean Corpuscular Hemoglobin Concent 31.4L, Red Cell Distribution Width 17.6H, Platelet Count 152, Mean Platelet Volume 7.6, Neutrophils (%) (Auto) 72.5, Lymphocytes (%) (Auto) 14.5L, Monocytes (%) (Auto) 11.8H, Eosinophils (%) (Auto ) 0.5, Basophils (%) (Auto) 0.7, Sodium Level 139, Potassium Level 4.9, Chloride Level 108H, Carbon Dioxide Level 28, Anion Gap 3L, Blood Urea Nitrogen 22H, Creatinine 0.6, Estimat Glomerular Filtration Rate > 60, Glucose Level 95, Calcium Level 8.2L, Total Bilirubin 0.4, Aspartate Amino Transf (AST/SGOT) 22, Alanine Aminotransferase (ALT/SGPT) 23, Alkaline Phosphatase 94, Total Protein 5.8L, Albumin 2.5L, Globulin 3.3, Albumin/Globulin Ratio 0.8L Height (Feet): 5 Height (Inches): 5.00 Weight (Pounds): 160 General Appearance: no apparent distress EENT: TMs normal Neck: normal alignment Cardiovascular: normal rate Respiratory/Chest: normal breath sounds Abdomen: no organomegaly Extremities: non-tender Edema: 1+ Leg (L), 1+ Leg (R) Edema: mild edema Neurologic: alert Skin: warm/dry Viral Ortiz Aug 21, 2017 12:29
--- NOTE | 2017-08-21 14:05 | Diagnostic Imaging Report ---
Indication: Cirrhosis. Technique: Multiplanar grayscale and color Doppler imaging of the abdomen. Comparison: None Findings: Limit evaluation due to patient body habitus and bowel gas. Pancreas and left lobe of the liver and portions of the aorta are not seen Diffuse increased hepatic echogenicity is noted. No focal liver mass lesion is seen. Portal vein is patent with normal direction of flow. There is no cholelithiasis. No gallbladder wall thickening or pericholecystic fluid. Common bile duct measures 3.6 mm. Liver contour appears smooth. Adjacent to the gallbladder/right liver the liver there is a homogeneous structure measuring up to 8.1 x 8.7 cm. This may represent a dilated stomach or bowel loop. Mass is not entirely excluded. Kidneys demonstrate normal parenchymal echogenicity. No evidence of hydronephrosis bilaterally. Spleen is borderline enlarged, measuring 12.6 cm in length. No ascites. Impression: Exam due to patient's body habitus and bowel gas. Diffuse increased hepatic echogenicity most, reflective of hepatic steatosis. Additional hepatocellular disease should be excluded clinically. Homogeneous structure adjacent to the liver measuring up to 8.7 cm. This may represent a dilated stomach or small bowel loop. Additional etiologies including mass not entirely excluded. Correlation with CT of the abdomen and pelvis with oral and IV contrast is recommended for further evaluation.
[2017-08-21 16:00] VITALS: BP 123/73
--- NOTE | 2017-08-21 16:50 | General Progress Note ---
Assessment/Plan Assessment/Plan Assessment - Anemia - Gastric Ulcer - CVA Recommendations - PPI - po diet at lacie - check and treat HP if (+) - IV Fe Subjective Allergies: Coded Allergies: No Known Allergies (Unverified , 08/17/17) Subjective Feels well no abdominal complaints tolerating PO Objective Last 24 Hour Vital Signs Date Time Temp Pulse Resp B/P (MAP) Pulse Ox O2 Delivery O2 Flow Rate FiO2 08/21/17 16:00 97.2 70 20 123/73 95 Room Air 08/21/17 12:00 67 08/21/17 12:00 97.9 69 20 134/78 97 Room Air 08/21/17 08:00 96.3 73 20 105/67 99 Room Air 08/21/17 08:00 83 08/21/17 04:00 97.3 67 20 106/65 99 Room Air 08/21/17 03:39 60 08/21/17 00:16 98.0 61 20 108/60 99 Room Air 08/20/17 23:46 67 08/20/17 20:40 69 08/20/17 20:00 97.3 67 20 107/57 97 Room Air Intake and Output 08/20/17 08/21/17 19:00 07:00 Intake Total 480 ml 1111 ml Output Total 300 ml 600 ml Balance 180 ml 511 ml Intake Oral 480 ml IV Total 1111 ml Output Urine Total 300 ml 600 ml # Voids 1 3 # Bowel Movements 1 1 Laboratory Tests 08/21/17 06:45: White Blood Count 5.1, Red Blood Count 3.48L, Hemoglobin 8.0L, Hematocrit 25.6L , Mean Corpuscular Volume 74L, Mean Corpuscular Hemoglobin 23.2L, Mean Corpuscular Hemoglobin Concent 31.4L, Red Cell Distribution Width 17.6H, Platelet Count 152, Mean Platelet Volume 7.6, Neutrophils (%) (Auto) 72.5, Lymphocytes (%) (Auto) 14.5L, Monocytes (%) (Auto) 11.8H, Eosinophils (%) (Auto ) 0.5, Basophils (%) (Auto) 0.7, Sodium Level 139, Potassium Level 4.9, Chloride Level 108H, Carbon Dioxide Level 28, Anion Gap 3L, Blood Urea Nitrogen 22H, Creatinine 0.6, Estimat Glomerular Filtration Rate > 60, Glucose Level 95, Calcium Level 8.2L, Total Bilirubin 0.4, Aspartate Amino Transf (AST/SGOT) 22, Alanine Aminotransferase (ALT/SGPT) 23, Alkaline Phosphatase 94, Total Protein 5.8L, Albumin 2.5L, Globulin 3.3, Albumin/Globulin Ratio 0.8L Height (Feet): 5 Height (Inches): 5.00 Weight (Pounds): 160 Objective WDWN NCAT supple CTA RRR Soft NT no edema NATALIO PAZ Aug 21, 2017 16:50
--- NOTE | 2017-08-21 18:27 | Neurology Progress Note ---
Interim History Interim History Interim History Mr. Collazo feels much better. He is more energetic. The mind is clear. He is stronger. He has been eating well. He did more walking today and felt steadier on his feet. He denies any new neurologic symptoms. Review of Systems Neuro Review of Systems Benign. Objective Physical Exam Last Vital Signs Date Time Temp Pulse Resp B/P (MAP) Pulse Ox O2 Delivery O2 Flow Rate FiO2 08/21/17 16:00 97.2 70 20 123/73 95 Room Air 08/19/17 11:00 3.0 Laboratory Tests Test 08/21/17 06:45 White Blood Count 5.1 K/UL (4.8-10.8) Red Blood Count 3.48 M/UL (4.70-6.10) L Hemoglobin 8.0 G/DL (14.2-18.0) L Hematocrit 25.6 % (42.0-52.0) L Mean Corpuscular Volume 74 FL (80-99) L Mean Corpuscular Hemoglobin 23.2 PG (27.0-31.0) L Mean Corpuscular Hemoglobin Concent 31.4 G/DL (32.0-36.0) L Red Cell Distribution Width 17.6 % (11.6-14.8) H Platelet Count 152 K/UL (150-450) Mean Platelet Volume 7.6 FL (6.5-10.1) Neutrophils (%) (Auto) 72.5 % (45.0-75.0) Lymphocytes (%) (Auto) 14.5 % (20.0-45.0) L Monocytes (%) (Auto) 11.8 % (1.0-10.0) H Eosinophils (%) (Auto) 0.5 % (0.0-3.0) Basophils (%) (Auto) 0.7 % (0.0-2.0) Sodium Level 139 MMOL/L (136-145) Potassium Level 4.9 MMOL/L (3.5-5.1) Chloride Level 108 MMOL/L (98-107) H Carbon Dioxide Level 28 MMOL/L (21-32) Anion Gap 3 mmol/L (5-15) L Blood Urea Nitrogen 22 mg/dL (7-18) H Creatinine 0.6 MG/DL (0.55-1.30) Estimat Glomerular Filtration Rate > 60 mL/min (>60) Glucose Level 95 MG/DL (74-106) Calcium Level 8.2 MG/DL (8.5-10.1) L Total Bilirubin 0.4 MG/DL (0.2-1.0) Aspartate Amino Transf (AST/SGOT) 22 U/L (15-37) Alanine Aminotransferase (ALT/SGPT) 23 U/L (12-78) Alkaline Phosphatase 94 U/L (46-116) Total Protein 5.8 G/DL (6.4-8.2) L Albumin 2.5 G/DL (3.4-5.0) L Globulin 3.3 g/dL Albumin/Globulin Ratio 0.8 (1.0-2.7) L Neurologic Exam Objective PHYSICAL EXAMINATION: GENERAL: He is a well-developed, relatively well-nourished, pleasant, gentleman, lying in bed, in no acute distress. HEAD: Normocephalic and atraumatic. NECK: No neck rigidity was observed. EENT: Benign. NEUROLOGICAL EXAMINATION: MENTAL STATUS EXAMINATION: He was awake and alert. He was oriented to person, place, and time, except for the exact date. He was able to recall 3/3 words immediately after 1 minute and after 3 minutes on the second trial. He was able to remember presidents, Trump through Golden Amarjit spontaneously, but needed hints to remember through Golden Senior. His mathematical skills were impaired. His visuospatial function was also impaired. SPEECH: He had no dysarthria. LANGUAGE: He had no aphasia in [place]. CRANIAL NERVE EXAMINATION: II: The visual archuleta were intact on confrontation testing. III, IV & : External ocular movements were full and the pupils 3 mm in diameter, equal, round, regular, and reactive to light. V: He had normal facial sensations and the temporales, masseters, and pterygoids functioned normally. VII: He had a mild left seventh central facial paresis. VIII: He was able to hear well bilaterally and had no nystagmus. IX: The palate moved symmetrically on phonation. X: He had no hoarseness of voice. XI: The sternocleidomastoids and trapezii functioned normally. XII: The tongue was in the midline without any fasciculations or atrophy. MOTOR SYSTEM: The tone was normal in all four extremities. Examination of muscle mass revealed no focal wasting. Examination of power revealed G 5/5 power except for G 4+/5 power in the left finger extensors and iliopsoas. SENSORY EXAMINATION: He had intact sensations to pinprick, light touch, and graphesthesia. COORDINATION: He performed well on [id number] and [id number] testing. Rapid alternating movements, however, were quite clumsy on the left side compared to the right. REFLEXES: 2+ on the right and 2++ on the left in the biceps, triceps, and brachioradialis, 2+ on the right and 3+ on the left at the knees, 1+ at both ankles. The plantar responses were flexor bilaterally. STANCE: He stood up with contact guard. GAIT: He walked with a minimally left hemiparetic gait with contact guard. Impression/Recommendations Diagnostic Impression 1. Mr. Hany Collazo is a 67-year-old, right-handed, gentleman, with a benign past history, who approximately 3 days prior to admission noted some progressive left-sided weakness. As a result of that, he presented to the [facility] Emergency Room. He was noted to be significantly anemic , but a CT scan of the brain was benign. 2. He feels much better today. He feels stronger, is steadier on his feet and has had no new neurologic symptoms. 3. On neurological examination at this time, he does have mild problems with recent and remote memory, visuospatial function, and higher cognitive function. He also has left hemiparesis involving the face, upper and lower extremities, left-sided hyperreflexia, and left hemiparetic gait. 4. The MRI scan of the brain performed on 08/18/2017 reveals a right-sided predominantly parietal infarct with minimal involvement of the frontal area. 5. Laboratory data revealed that his hemoglobin on admission was at 6.5 G. He had a normal INR. The chemistry panel revealed that his BUN was elevated to 19. His albumin was low at 3.0. His vitamin B12 level was low at 221. His folic acid level was 17.2 and his bilirubin was elevated to 1.5. His urinalysis revealed 1+ leukocyte esterase, 0 to 2 red blood cells, and 2 to 4 white blood cells per high-power field. His homocystine is elevated to 21. 6. 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 He also had a severe anemia and vitamin B12 deficiency. 7. His GI work up revealed a gastric ulcer status post biopsy, prominent gastric folds, suspicious for malignancy status post biopsy, incomplete colonoscopy examination given the poor prep, diverticulosis, and internal hemorrhoids. Recommendations 1. Continue present management. 2. The patient's hemoglobin should be brought up to greater than 10 G. 3. Vitamin B12 1000 mcg subcutaneously daily for 3 days and then monthly. 4. Folic acid 1 mg daily for elevated homocystine. 5. GI management as per Dr. Angulo. 6. Physical and occupational therapy to rehabilitate him. 7. Can decrease aspirin to 81 mg q day in light of gastritis. Chavez Ontiveros M.D., M.S.P.Jadon. CHAVEZ ONTIVEROS Aug 21, 2017 18:27
--- NOTE | 2017-08-21 18:50 | Internal Med Progress Note ---
Subjective Physician Name RobinYari cameron Attending Physician Dmitry Casanova Current Medications Medications (Trade) Dose Ordered Sig/Lizzy Route PRN Reason Start Time Stop Time Status Last Admin Dose Admin Acetaminophen (Tylenol) 650 mg Q4H PRN ORAL Mild Pain (Pain Scale 1-3) 08/18/17 01:45 09/17/17 01:44 Acetaminophen (Tylenol) 650 mg Q4H PRN ORAL fever 08/18/17 01:45 09/17/17 01:44 Aspirin (ASA) 325 mg DAILY ORAL 08/18/17 14:00 09/17/17 13:59 08/21/17 08:59 Bisacodyl (Dulcolax) 10 mg DAILYPRN PRN RECTAL Constipation 08/18/17 01:45 09/17/17 01:44 Dextrose (Dextrose 50%) STAT PRN IV Hypoglycemia 08/18/17 01:45 09/17/17 01:44 Dextrose/ Electrolytes 1,000 ml @ 75 mls/hr [id number] IV 08/18/17 03:00 09/17/17 02:59 08/21/17 18:38 Docusate Sodium (Colace) 100 mg EVERY 12 HOURS ORAL 08/18/17 09:00 09/17/17 08:59 08/20/17 20:34 Folic Acid (Folate) 1 mg DAILY ORAL 08/19/17 18:30 09/18/17 18:29 08/21/17 08:59 Iron Sucrose 100 mg/Sodium Chloride 60 ml @ 240 mls/hr BEDTIME IV 08/19/17 21:00 08/23/17 21:14 08/20/17 20:33 Ondansetron HCl (Zofran) 4 mg Q6H PRN IVP Nausea & Vomiting 08/18/17 01:45 09/17/17 01:44 Pantoprazole (Protonix) 40 mg DAILY IV 08/18/17 09:00 09/17/17 08:59 08/21/17 09:01 Polyethylene Glycol (Miralax) 17 gm DAILYPRN PRN ORAL Constipation 08/18/17 01:45 09/17/17 01:44 Allergies: Coded Allergies: No Known Allergies (Unverified , 08/17/17) Objective Last Vital Signs Date Time Temp Pulse Resp B/P (MAP) Pulse Ox O2 Delivery O2 Flow Rate FiO2 08/21/17 16:00 97.2 70 20 123/73 95 Room Air 08/19/17 11:00 3.0 Laboratory Tests Test 08/21/17 06:45 White Blood Count 5.1 K/UL (4.8-10.8) Red Blood Count 3.48 M/UL (4.70-6.10) L Hemoglobin 8.0 G/DL (14.2-18.0) L Hematocrit 25.6 % (42.0-52.0) L Mean Corpuscular Volume 74 FL (80-99) L Mean Corpuscular Hemoglobin 23.2 PG (27.0-31.0) L Mean Corpuscular Hemoglobin Concent 31.4 G/DL (32.0-36.0) L Red Cell Distribution Width 17.6 % (11.6-14.8) H Platelet Count 152 K/UL (150-450) Mean Platelet Volume 7.6 FL (6.5-10.1) Neutrophils (%) (Auto) 72.5 % (45.0-75.0) Lymphocytes (%) (Auto) 14.5 % (20.0-45.0) L Monocytes (%) (Auto) 11.8 % (1.0-10.0) H Eosinophils (%) (Auto) 0.5 % (0.0-3.0) Basophils (%) (Auto) 0.7 % (0.0-2.0) Sodium Level 139 MMOL/L (136-145) Potassium Level 4.9 MMOL/L (3.5-5.1) Chloride Level 108 MMOL/L (98-107) H Carbon Dioxide Level 28 MMOL/L (21-32) Anion Gap 3 mmol/L (5-15) L Blood Urea Nitrogen 22 mg/dL (7-18) H Creatinine 0.6 MG/DL (0.55-1.30) Estimat Glomerular Filtration Rate > 60 mL/min (>60) Glucose Level 95 MG/DL (74-106) Calcium Level 8.2 MG/DL (8.5-10.1) L Total Bilirubin 0.4 MG/DL (0.2-1.0) Aspartate Amino Transf (AST/SGOT) 22 U/L (15-37) Alanine Aminotransferase (ALT/SGPT) 23 U/L (12-78) Alkaline Phosphatase 94 U/L (46-116) Total Protein 5.8 G/DL (6.4-8.2) L Albumin 2.5 G/DL (3.4-5.0) L Globulin 3.3 g/dL Albumin/Globulin Ratio 0.8 (1.0-2.7) L Intake and Output 08/20/17 08/21/17 19:00 07:00 Intake Total 480 ml 1111 ml Output Total 300 ml 600 ml Balance 180 ml 511 ml Intake Oral 480 ml IV Total 1111 ml Output Urine Total 300 ml 600 ml # Voids 1 3 # Bowel Movements 1 1 Assessment/Plan Assessment/Plan Assessment/Plan Problem List: (1) Acute CVA of R parietal lobe (2) Severe anemia Assessment & Plan: Microcytic anemia ICD Codes: D64.9 - Anemia, unspecified SNOMED: 417730768 (3) Hypokalemia ICD Codes: E87.6 - Hypokalemia SNOMED: 41223470 (4) Acute blood loss anemia ICD Codes: D62 - Acute posthemorrhagic anemia SNOMED: 504806453 (5) Gastric ulcer ICD Codes: K25.9 - Gastric ulcer, unspecified as acute or chronic, without hemorrhage or perforation SNOMED: 645443420 Qualifiers: Status: stable Assessment/Plan Neuro consulted F/u MRI brain--confirms acute R parietal lobe CVA Neuro checks - carotid U/S - TTE ASA 325mg daily given CVA Check lipid panel, TSH, A1C Hematology consulted given severe anemia s/p 2U pRBC on 08/17/17 F/u B12/folate, Fe panel/ferritin GI consulted given severe anemia s/p EGD/colo on 08/19/17--showed gastric ulcer, prominent gastric folds suspicious for malignancy, incomplete colonoscopy prep Cont PPI F/u path biopsy Trend CBC, BMP Replete lytes Pain control, bowel regimen Supportive care PT/OT Niece requested transfer to [facility] as pt is [facility] pt but CM confirms that pt does not have active [facility] insurance CM consulted for d/c plan to ARU vs SNF DVT Prophylaxis: SCD Code Status: Full Hospital Classification Declaration: Based on this initial evaluation, and depending on the patient's clinical course, I anticipate that this patient will require hospitalization for 1-2 days for acute CVA, severe anemia and close respiratory/hemodynamic monitoring. Disposition: Once the patient is stable to leave the hospital, I anticipate the patient will likely be discharged to the following environment: home with HH vs SNF vs ARU Discussed with patient/family, nursing staff, SW/CM, GI, hematology, neuro regarding clinical status, treatment course, and disposition planning. D/w CM re dispo Time of note may not reflect time of encounter. Subjective Date patient seen: Aug 19, 2017 Time patient seen: 14:00 ROS Limited/Unobtainable: No Constitutional: Reports: no symptoms HEENT: Reports: no symptoms Cardiovascular: Reports: no symptoms Respiratory: Reports: no symptoms Gastrointestinal/Abdominal: Reports: no symptoms Genitourinary: Reports: no symptoms Neurologic/Psychiatric: Reports: no symptoms Endocrine: Reports: no symptoms Hematologic/Lymphatic: Reports: no symptoms Allergies: Coded Allergies: No Known Allergies (Unverified , 08/17/17) All Systems: reviewed and negative except above Subjective No acute o/n events s/p EGD/colo today Pt doing well. Denies f/c, n/v, d/c, chest pain, SOB Objective Last 24 Hour Vital Signs Date Time Temp Pulse Resp B/P (MAP) Pulse Ox O2 Delivery O2 Flow Rate FiO2 08/19/17 16:00 97.1 59 20 104/64 99 Room Air 08/19/17 15:38 60 18 99 08/19/17 15:37 57 18 100 08/19/17 12:00 97.5 70 19 139/84 100 Room Air 08/19/17 11:14 97.4 55 20 131/73 99 Room Air 08/19/17 11:05 54 20 124/88 99 Room Air 08/19/17 11:00 54 20 126/74 99 Nasal Cannula 3.0 08/19/17 10:55 97.3 56 20 121/78 99 Nasal Cannula 3.0 08/19/17 08:00 62 08/19/17 08:00 96.9 60 18 113/64 97 Room Air 08/19/17 04:19 98.5 61 18 124/64 97 Room Air 08/19/17 04:00 56 08/19/17 00:24 96.7 54 18 110/66 Room Air 08/19/17 00:00 55 08/18/17 20:56 97.0 59 18 101/67 100 Room Air 08/18/17 20:00 56 Intake and Output 08/18/17 08/19/17 19:00 07:00 Intake Total 1347 ml 850 ml Output Total 300 ml 600 ml Balance 1047 ml 250 ml Intake Oral 472 ml IV Total 875 ml 850 ml Output Urine Total 300 ml 600 ml # Voids 3 # Bowel Movements 1 Laboratory Tests 08/18/17 18:25: Fibrinogen 175L 08/19/17 06:47: White Blood Count 3.3L, Red Blood Count 3.54L, Hemoglobin 8.1L, Hematocrit 26.1L , Mean Corpuscular Volume 74L, Mean Corpuscular Hemoglobin 23.0L, Mean Corpuscular Hemoglobin Concent 31.2L, Red Cell Distribution Width 17.3H, Platelet Count 163, Mean Platelet Volume 7.6, Neutrophils (%) (Auto) , Lymphocytes (%) (Auto) , Monocytes (%) (Auto) , Eosinophils (%) (Auto) , Basophils (%) (Auto) , Differential Total Cells Counted 100, Neutrophils % ( Manual) 68, Lymphocytes % (Manual) 20, Monocytes % (Manual) 11H, Eosinophils % ( Manual) 0, Basophils % (Manual) 1, Band Neutrophils 0, Platelet Estimate Adequate, Platelet Morphology Normal, Hypochromasia 2+, Anisocytosis 1+, Microcytosis 2+, Prothrombin Time 11.0, Prothromb Time International Ratio 1.1, Activated Partial Thromboplast Time 27, Sodium Level 142, Potassium Level 4.5, Chloride Level 107, Carbon Dioxide Level 30, Anion Gap 6, Blood Urea Nitrogen 12 , Creatinine 0.7, Estimat Glomerular Filtration Rate > 60, Glucose Level 79, Hemoglobin A1c 4.9, Calcium Level 8.2L, Magnesium Level 1.8, Iron Level 25L, Total Iron Binding Capacity 367, Percent Iron Saturation 7L, Unsaturated Iron Binding 342, Total Bilirubin 0.7, Direct Bilirubin 0.2, Aspartate Amino Transf ( AST/SGOT) 25, Alanine Aminotransferase (ALT/SGPT) 30, Alkaline Phosphatase 95, Troponin I 0.036, Total Protein 5.6L, Albumin 2.7L, Triglycerides Level 44, Cholesterol Level 94, LDL Cholesterol 54, HDL Cholesterol 34L, Cholesterol/HDL Ratio 2.8L, Vitamin B12 Level 7916H, Folate 18.7, Hepatitis A IgM Antibody [ Pending], Hepatitis B Surface Antigen [Pending], Hepatitis B Core IgM Antibody [ Pending], Hepatitis C Antibody [Pending], HIV (1&2) Antibody Rapid Negative Height (Feet): 5 Height (Inches): 5.00 Weight (Pounds): 160 Objective General: alert, cooperative, no distress, appears stated age Head: normocephalic, without obvious abnormality, atraumatic Eyes: conjunctivae/corneas clear. PERRL, EOM's intact Throat: lips, mucosa, and tongue normal. MMM Neck: supple, symmetrical, trachea midline, and no JVD Lungs: clear to auscultation bilaterally Heart: regular rate and rhythm, S1, S2 normal, no murmur, click, rub or gallop Abdomen: soft, non-tender, non-distended, bowel sounds normal; no masses or organomegaly Extremities: extremities normal, atraumatic, no cyanosis or edema Pulses: 2+ and symmetric Skin: skin color, texture, turgor normal; no rashes or lesions Neurologic: grossly normal, no focal deficits except 4/5 motor strength for L finger extensors and iliopsoas and iliopsoas Yari Cameron M.D. Aug 21, 2017 18:50
[2017-08-21 20:00] VITALS: BP 111/69
[2017-08-21] MEDS: Iron Sucrose 100 MG in NS 55 ML IV SCH (20:20)
[2017-08-22 00:37] VITALS: BP 105/56
[2017-08-22 04:19] VITALS: BP 105/65
[2017-08-22 08:00] VITALS: BP 103/60
--- NOTE | 2017-08-22 08:00 | Consultation ---
DATE OF CONSULTATION: 08/19/2017 HEMATOLOGY/ONCOLOGY CONSULTATION CONSULTING PHYSICIAN: Viral Ortiz M.D. REQUESTING PHYSICIAN: Dmitry Casanova M.D. REASON FOR CONSULTATION: Evaluation of anemia. IDENTIFICATION DATA: Dear Dr. Casanova and Dr. Smitha Lilly. The patient is a 67-year-old right-handed male with past medical history significant for diabetes mellitus at this time presents to the hospital with progressive weakness in both upper and lower extremities. In the ER, he was found to be anemic. He had a CAT scan of the brain performed, which shows 00:48. The patient has been seen by Neurology service. A CAT scan of the brain is negative. MRI scan of the brain performed on reveals right-sided predominantly parietal infarct and noted that the patient has evidence of stroke, currently on B12. Anemia workup was called by the primary team for further evaluation. WBC of 3.3, 01:26 PAST MEDICAL HISTORY: Reviewed. None reported. PAST SURGICAL HISTORY: None noted. MEDICATIONS: Have been reviewed. SOCIAL HISTORY: Lives alone. No alcohol, tobacco, or illicit drug use. REVIEW OF SYSTEMS: A 12-point review of systems is completed, otherwise is negative. PHYSICAL EXAMINATION: GENERAL: No acute distress. VITAL SIGNS: Reviewed. PULMONARY: Decreased breath sounds. CARDIOVASCULAR: Regular rate. No S3 or S4. ABDOMEN: Soft, nontender, and nondistended. EXTREMITIES: 1+ edema. LABORATORY DATA: 02:05 ASSESSMENT AND RECOMMENDATIONS: 1. Anemia secondary to iron deficiency. Consider gastrointestinal evaluation. The patient does have evidence of iron-deficiency, unknown etiology. Consider blood loss. 2. Leukopenia. We have ordered hepatitis panel, human immunodeficiency virus, and ultrasound of the abdomen. 3. Infarction in the right parietal cortex likely causing the patient's 02:47 leg and arm weakness, likely related to underlying stroke. Continue PT/OT. 4. Diabetes mellitus. Monitor and administer hypoglycemics agents as needed. I appreciate consultation. Viral Ortiz M.D. DR: LUCINA JOB#: [id number] CC:
[2017-08-22] MEDS: Docusate 100mg cap ORAL SCH (09:31)
[2017-08-22] MEDS: Pantoprazole Inj IV SCH (09:33)
[2017-08-22] MEDS: D5 1/2NS w/KCl 20mEq 1,000 ML IV SCH (09:40)
--- NOTE | 2017-08-22 10:41 | GI Progress Note ---
Assessment/Plan Problems: (1) Gastric ulcer ICD Codes: K25.9 - Gastric ulcer, unspecified as acute or chronic, without hemorrhage or perforation SNOMED: 391084009 (2) No significant past medical history SNOMED: 295234702 (3) Severe anemia ICD Codes: D64.9 - Anemia, unspecified SNOMED: 794375206 Status: stable Status Narrative Discussed with Dr. Angulo. Assessment/Plan SUMMARY FINDINGS: 1. Gastric ulcer status post biopsy. 2. Prominent gastric folds, suspicious for malignancy status post biopsy. 3. Incomplete colonoscopy examination given the poor prep. 4. Diverticulosis. 5. Internal hemorrhoids. RECOMMENDATIONS: 1. Followup biopsy results and treat accordingly. 2. Check CEA level. 3. Check H. pylori serology. 4. Continue on PPI. adv diet OT/PT eval fu labs Subjective Gastrointestinal/Abdominal: Reports: no symptoms Subjective abdominal U/S improved Objective Last 24 Hour Vital Signs Date Time Temp Pulse Resp B/P (MAP) Pulse Ox O2 Delivery O2 Flow Rate FiO2 08/22/17 08:00 97.4 68 18 103/60 100 Room Air 08/22/17 04:19 97.0 69 20 105/65 97 08/22/17 04:00 61 08/22/17 00:37 98.1 67 20 105/56 96 Room Air 08/22/17 00:00 65 08/21/17 20:00 97.3 76 20 111/69 97 Room Air 08/21/17 20:00 67 08/21/17 16:00 97.2 70 20 123/73 95 Room Air 08/21/17 16:00 75 08/21/17 12:00 67 08/21/17 12:00 97.9 69 20 134/78 97 Room Air Intake and Output 08/21/17 08/22/17 19:00 07:00 Intake Total 840 ml Output Total 650 ml Balance 190 ml Intake Oral 840 ml Output Urine Total 650 ml # Voids 2 Height (Feet): 5 Height (Inches): 5.00 Weight (Pounds): 160 General Appearance: WD/WN, no apparent distress, alert, thin Cardiovascular: normal rate Respiratory/Chest: normal breath sounds, no respiratory distress Abdominal Exam: normal bowel sounds, non tender, soft Extremities: non-tender Rani Mercado N.PSchuyler Aug 22, 2017 10:41
[2017-08-22 12:00] VITALS: BP 116/68
--- NOTE | 2017-08-22 12:17 | Cardiology Report ---
APPROVED REPORT EXAM: Two-dimensional and M-mode echocardiogram with Doppler and color Doppler. INDICATION CVA M-Mode DIMENSIONS IVSd1.3 (0.7-1.1cm)Left Atrium (MM)3.5 (1.6-4.0cm) LVDd5.0 (3.5-5.6cm)Aortic Root4.2 (2.0-3.7cm) PWd1.2 (0.7-1.1cm)Aortic Cusp Exc.2.2 (1.5-2.0cm) IVSs1.8 cm LVDs2.8 (2.5-4.0cm) PWs1.7 cm Normal left ventricular chamber size, systolic function and wall motion. Left ventricular ejection fraction estimated to be 70-75%. No evidence of left ventricular hypertrophy. Small pericardial effusion. All other cardiac chamber size are within normal limits . Focal aortic valve sclerosis with adequate cusp excursion. Thickened mitral valve leaflets with normal excursion. Mitral annulus and aortic root calcification. Normal pulmonic valve structure. Normal tricuspid valve structure. A color flow and spectral Doppler study was performed and revealed: No aortic regurgitation. Mild mitral regurgitation . Mitral diastolic velocities suggest reduced left ventricular relaxation c/w mild LV diastolic dysfunction (Grade I ). Trace tricuspid regurgitation. Tricuspid systolic velocities suggests peak right ventricular systolic pressure of 25 mmHg. No Pulmonic regurgitation present. BUBBLE STUDY: With 2X10cc of agitated saline injected intravenously, there is no communication between right side and left side of the heart. Negative bubble study.
--- NOTE | 2017-08-22 12:39 | Neurology Progress Note ---
Interim History Interim History Interim History Mr. Collazo feels much better. He is more energetic. The mind is clear. He is stronger. He has been eating well. The walking is much more steady and he feels it is close to his normal. He denies any new neurologic symptoms. Review of Systems Neuro Review of Systems Benign. Objective Physical Exam Last Vital Signs Date Time Temp Pulse Resp B/P (MAP) Pulse Ox O2 Delivery O2 Flow Rate FiO2 08/22/17 08:25 70 08/22/17 08:00 97.4 18 103/60 100 Room Air 08/19/17 11:00 3.0 Neurologic Exam Objective PHYSICAL EXAMINATION: GENERAL: He is a well-developed, relatively well-nourished, pleasant, gentleman, sitting up at the edge of his bed, enjoying his lunch, in no acute distress. HEAD: Normocephalic and atraumatic. NECK: No neck rigidity was observed. EENT: Benign. NEUROLOGICAL EXAMINATION: MENTAL STATUS EXAMINATION: He was awake and alert. He was oriented to person, place, and time, except for the exact date. He was able to recall 3/3 words immediately after 1 minute and after 3 minutes on the second trial. He was able to remember presidents, Trump through [employer] spontaneously, but needed hints to remember through [email or web address]. His mathematical skills were impaired. His visuospatial function was also impaired. SPEECH: He had no dysarthria. LANGUAGE: He had no aphasia in Croatian. CRANIAL NERVE EXAMINATION: II: The visual archuleta were intact on confrontation testing. III, IV & : External ocular movements were full and the pupils 3 mm in diameter, equal, round, regular, and reactive to light. V: He had normal facial sensations and the temporales, masseters, and pterygoids functioned normally. VII: He had a mild left seventh central facial paresis. VIII: He was able to hear well bilaterally and had no nystagmus. IX: The palate moved symmetrically on phonation. X: He had no hoarseness of voice. XI: The sternocleidomastoids and trapezii functioned normally. XII: The tongue was in the midline without any fasciculations or atrophy. MOTOR SYSTEM: The tone was normal in all four extremities. Examination of muscle mass revealed no focal wasting. Examination of power revealed G 5/5 power except for G 5-/5 power in the left finger extensors and iliopsoas. SENSORY EXAMINATION: He had intact sensations to pinprick, light touch, and graphesthesia. COORDINATION: He performed well on [id number] and [id number] testing. Rapid alternating movements, however, were minimally clumsy on the left side compared to the right. REFLEXES: 2+ on the right and 2++ on the left in the biceps, triceps, and brachioradialis, 2+ on the right and 3+ on the left at the knees, 1+ at both ankles. The plantar responses were flexor bilaterally. STANCE: He stood up with contact guard. GAIT: He walked well with contact guard. Impression/Recommendations Diagnostic Impression 1. Mr. Hany Collazo is a 67-year-old, right-handed, gentleman, with a benign past history, who approximately 3 days prior to admission noted some progressive left-sided weakness. As a result of that, he presented to the [facility] Emergency Room. He was noted to be significantly anemic , but a CT scan of the brain was benign. 2. He feels much better today. He feels stronger, is steadier on his feet and has had no new neurologic symptoms. 3. On neurological examination at this time, he does have mild problems with recent and remote memory, visuospatial function, and higher cognitive function. He also has left hemiparesis involving the face, upper and lower extremities, and left-sided hyperreflexia. However his gait is much better. 4. The MRI scan of the brain performed on 08/18/2017 reveals a right-sided predominantly parietal infarct with minimal involvement of the frontal area. 5. Laboratory data revealed that his hemoglobin on admission was at 6.5 G. He had a normal INR. The chemistry panel revealed that his BUN was elevated to 19. His albumin was low at 3.0. His vitamin B12 level was low at 221. His folic acid level was 17.2 and his bilirubin was elevated to 1.5. His urinalysis revealed 1+ leukocyte esterase, 0 to 2 red blood cells, and 2 to 4 white blood cells per high-power field. His homocystine is elevated to 21. 6. 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 He also had a severe anemia and vitamin B12 deficiency. 7. His GI work up revealed a gastric ulcer status post biopsy, prominent gastric folds, suspicious for malignancy status post biopsy, incomplete colonoscopy examination given the poor prep, diverticulosis, and internal hemorrhoids. Recommendations 1. Continue present management. 2. The patient's hemoglobin should be brought up to greater than 10 G. 3. Vitamin B12 1000 mcg subcutaneously daily for 3 days and then monthly. 4. Folic acid 1 mg daily for elevated homocystine. 5. GI management as per Dr. Angulo. 6. Physical and occupational therapy to rehabilitate him. 7. Can decrease aspirin to 81 mg q day in light of gastritis. Chavez Ontiveros M.D., M.S.P.H. CHAVEZ ONTIVEROS Aug 22, 2017 12:39
[2017-08-22] MEDS ORDERED: ASPIRIN-LOW81 MG ORAL (14:49)
[2017-08-22] MEDS ORDERED: PROTONIX40 MG ORAL ×2 (14:49→14:53)
[2017-08-22] MEDS ORDERED: FOLIC ACID1 MG ORAL (14:49)
[2017-08-22] MEDS ORDERED: LIPITOR40 MG ORAL (14:51)
--- NOTE | 2017-08-22 15:06 | Discharge Summary ---
Discharge Summary Hospital Course Date of Admission Aug 17, 2017 at 22:31 Date of Discharge 08/23/17 Admitting Diagnosis weakness/inabilty to ambulate HPI 67y/o male with no sig pmh who presented with L sided weakness and inability to ambulate. 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 He was doing well until Tuesday when he noted L arm and leg weakness. He had difficulty ambulating. Denies f/c, n/v, d/c, chest pain, SOB, abd pain. Denies trauma, recent travel, sick contacts. No numbness/tingling. Pt lives alone and functions independently. Denies confusion, problems w/ speech/swallow. In ED, CT head was neg for acute abnormality. Labs showed anemia to 6.5, 2U pRBC ordered to be transfused. Consultations Neurology, Gastroenterology Procedures EGD/colo on 08/19/17 which showed gastric ulcer, prominent gastric folds suspicious for malignancy, incomplete colonoscopy prep Hospital Course Pt was admitted and seen by neurology. MRI brain showed acute R parietal lobe CVA. Pt was started on ASA and risk factors optimized. Pt also underwent EGD/ colo on 08/19/17 which showed gastric ulcer, prominent gastric folds suspicious for malignancy, incomplete colonoscopy prep. Pt required abt 2U pRBCs and then hgb stabilized. Pt was seen by PT/OT who recommended rehab but pt/family ultimately declined and wished to go home with home health. Discharge diagnoses: (1) Acute CVA of R parietal lobe (2) Severe anemia Assessment & Plan: Microcytic anemia ICD Codes: D64.9 - Anemia, unspecified SNOMED: 477877391 (3) Hypokalemia ICD Codes: E87.6 - Hypokalemia SNOMED: 54526021 (4) Acute blood loss anemia ICD Codes: D62 - Acute posthemorrhagic anemia SNOMED: 814439684 (5) Gastric ulcer ICD Codes: K25.9 - Gastric ulcer, unspecified as acute or chronic, without hemorrhage or perforation Discharge Medications New Medications: Aspirin (Aspirin EC) 81 Mg Tablet. 81 MG ORAL DAILY for 30 Days, #30 TAB 6 Refills Atorvastatin Calcium* (Lipitor*) 40 Mg Tablet 40 MG ORAL BEDTIME for 30 Days, #30 TAB 1 Refill Pantoprazole* (Protonix*) 40 Mg Tablet.dr 40 MG ORAL DAILY for 30 Days, #30 TAB 2 Refills Folic Acid* (Folic Acid*) 1 Mg Tablet 1 MG ORAL DAILY for 30 Days, #30 TAB 6 Refills Discharge Condition Upon Discharge: stable Discharge Disposition Patient was discharged to home w/ home health Discharge Diagnoses: Smitha Lilly M.D. Aug 22, 2017 15:06
[2017-08-22] MEDS ORDERED: NS 275ml ONE (15:44)
[2017-08-22] MEDS ORDERED: Tubing IV Secondary IV ONE (15:44)
--- NOTE | 2017-08-23 00:48 | General Progress Note ---
Assessment/Plan Status: unchanged Assessment/Plan # Anemia of iron deficiency - continue patient on iv iron, ferritin is low and tibc elevated --> total of 5 doses of iv iron ordered --> F/u path biopsy # Leukopenia is likely medication related, hepatitis and hiv are both negative, us of the abdomen reviewed --> Cont to monitor cbc daily. # Stroke of parietal lobe Right side --> neuro checks, f/u carotid U/S, f/u TTE # Gastric ulceration --> s/p EGD/colo on 08/19/17--showed gastric ulcer, prominent gastric folds suspicious for malignancy, incomplete colonoscopy prep --> Cont PPI Subjective Date patient seen: Aug 19, 2017 Allergies: Coded Allergies: No Known Allergies (Unverified , 08/17/17) Subjective No major events. Vitals stable. Objective VS - Last 72 Hours, by Label Date Time Temp Pulse Resp B/P (MAP) Pulse Ox O2 Delivery O2 Flow Rate FiO2 08/22/17 12:00 97.8 60 18 116/68 100 Room Air 08/22/17 11:32 61 08/22/17 08:25 70 08/22/17 08:00 97.4 68 18 103/60 100 Room Air 08/22/17 04:19 97.0 69 20 105/65 97 08/22/17 04:00 61 08/22/17 00:37 98.1 67 20 105/56 96 Room Air 08/22/17 00:00 65 08/21/17 20:00 97.3 76 20 111/69 97 Room Air 08/21/17 20:00 67 08/21/17 16:00 97.2 70 20 123/73 95 Room Air 08/21/17 16:00 75 08/21/17 12:00 67 08/21/17 12:00 97.9 69 20 134/78 97 Room Air 08/21/17 08:00 96.3 73 20 105/67 99 Room Air 08/21/17 08:00 83 08/21/17 04:00 97.3 67 20 106/65 99 Room Air 08/21/17 03:39 60 08/21/17 00:16 98.0 61 20 108/60 99 Room Air 08/20/17 23:46 67 08/20/17 20:40 69 08/20/17 20:00 97.3 67 20 107/57 97 Room Air 08/20/17 16:00 98.1 78 20 119/75 100 Room Air 08/20/17 16:00 63 08/20/17 12:00 79 08/20/17 12:00 96.9 68 20 112/68 100 Room Air 08/20/17 08:00 97.9 61 20 114/73 100 Room Air 08/20/17 04:41 97.5 69 18 109/66 97 Room Air 08/20/17 04:00 58 Last 24 Hour Vital Signs Date Time Temp Pulse Resp B/P (MAP) Pulse Ox O2 Delivery O2 Flow Rate FiO2 08/22/17 12:00 97.8 60 18 116/68 100 Room Air 08/22/17 11:32 61 08/22/17 08:25 70 08/22/17 08:00 97.4 68 18 103/60 100 Room Air 08/22/17 04:19 97.0 69 20 105/65 97 08/22/17 04:00 61 Intake and Output 08/22/17 08/23/17 19:00 07:00 Intake Total 472 ml Output Total 750 ml Balance -278 ml Intake Oral 472 ml Output Urine Total 750 ml # Voids 3 Labs Test 08/20/17 07:15 08/21/17 06:45 White Blood Count 4.3 K/UL (4.8-10.8) 5.1 K/UL (4.8-10.8) Red Blood Count 3.53 M/UL (4.70-6.10) 3.48 M/UL (4.70-6.10) Hemoglobin 8.0 G/DL (14.2-18.0) 8.0 G/DL (14.2-18.0) Hematocrit 25.9 % (42.0-52.0) 25.6 % (42.0-52.0) Mean Corpuscular Volume 73 FL (80-99) 74 FL (80-99) Mean Corpuscular Hemoglobin 22.6 PG (27.0-31.0) 23.2 PG (27.0-31.0) Mean Corpuscular Hemoglobin Concent 30.8 G/DL (32.0-36.0) 31.4 G/DL (32.0-36.0) Red Cell Distribution Width 17.3 % (11.6-14.8) 17.6 % (11.6-14.8) Platelet Count 146 K/UL (150-450) 152 K/UL (150-450) Mean Platelet Volume 7.2 FL (6.5-10.1) 7.6 FL (6.5-10.1) Neutrophils (%) (Auto) 72.4 % (45.0-75.0) 72.5 % (45.0-75.0) Lymphocytes (%) (Auto) 14.8 % (20.0-45.0) 14.5 % (20.0-45.0) Monocytes (%) (Auto) 12.0 % (1.0-10.0) 11.8 % (1.0-10.0) Eosinophils (%) (Auto) 0.4 % (0.0-3.0) 0.5 % (0.0-3.0) Basophils (%) (Auto) 0.5 % (0.0-2.0) 0.7 % (0.0-2.0) Sodium Level 139 MMOL/L (136-145) 139 MMOL/L (136-145) Potassium Level 4.0 MMOL/L (3.5-5.1) 4.9 MMOL/L (3.5-5.1) Chloride Level 107 MMOL/L (98-107) 108 MMOL/L (98-107) Carbon Dioxide Level 28 MMOL/L (21-32) 28 MMOL/L (21-32) Anion Gap 4 mmol/L (5-15) 3 mmol/L (5-15) Blood Urea Nitrogen 20 mg/dL (7-18) 22 mg/dL (7-18) Creatinine 0.7 MG/DL (0.55-1.30) 0.6 MG/DL (0.55-1.30) Estimat Glomerular Filtration Rate > 60 mL/min (>60) > 60 mL/min (>60) Glucose Level 83 MG/DL (74-106) 95 MG/DL (74-106) Calcium Level 7.8 MG/DL (8.5-10.1) 8.2 MG/DL (8.5-10.1) Total Bilirubin 0.4 MG/DL (0.2-1.0) Aspartate Amino Transf (AST/SGOT) 22 U/L (15-37) Alanine Aminotransferase (ALT/SGPT) 23 U/L (12-78) Alkaline Phosphatase 94 U/L (46-116) Total Protein 5.8 G/DL (6.4-8.2) Albumin 2.5 G/DL (3.4-5.0) Globulin 3.3 g/dL Albumin/Globulin Ratio 0.8 (1.0-2.7) Height (Feet): 5 Height (Inches): 5.00 Weight (Pounds): 160 General Appearance: no apparent distress Respiratory/Chest: decreased breath sounds Abdomen: non tender, soft Edema: 1+ Leg (L), 1+ Leg (R) Edema: mild edema Skin: warm/dry Viral Ortiz Aug 23, 2017 00:48
--- NOTE | 2017-08-23 02:09 | General Progress Note ---
Assessment/Plan Status: unchanged Assessment/Plan # Anemia of iron deficiency - continue patient on iv iron, ferritin is low and tibc elevated --> total of 5 doses of iv iron ordered --> F/u path biopsy # Leukopenia is likely medication related, hepatitis and hiv are both negative, us of the abdomen reviewed --> Cont to monitor cbc daily. # Stroke of parietal lobe Right side --> neuro checks, f/u carotid U/S, f/u TTE # Gastric ulceration --> s/p EGD/colo on 08/19/17--showed gastric ulcer, prominent gastric folds suspicious for malignancy, incomplete colonoscopy prep --> Cont PPI Subjective Date patient seen: Aug 20, 2017 Constitutional: Denies: no symptoms, chills, diaphoresis, fever, malaise, weakness, other HEENT: Denies: no symptoms, eye pain, blurred vision, tearing, double vision, ear pain, ear discharge, nose pain, nose congestion, throat pain, throat swelling, mouth pain, mouth swelling, other Cardiovascular: Denies: no symptoms, chest pain, edema, irregular heart rate, lightheadedness, palpitations, syncope, other Respiratory: Denies: no symptoms, cough, orthopnea, shortness of breath, SOB with excertion, SOB at rest, sputum, stridor, wheezing, other Gastrointestinal/Abdominal: Denies: no symptoms, abdomen distended, abdominal pain, black stools, tarry stools, blood in stool, constipated, diarrhea, difficulty swallowing, nausea, poor appetite, poor fluid intake, rectal bleeding , vomiting, other Genitourinary: Denies: no symptoms, burning, discharge, frequency, flank pain, hematuria, incontinence, pain, urgency, other Allergies: Coded Allergies: No Known Allergies (Unverified , 08/17/17) Subjective No major events. Vitals stable. Objective VS - Last 72 Hours, by Label Date Time Temp Pulse Resp B/P (MAP) Pulse Ox O2 Delivery O2 Flow Rate FiO2 08/22/17 12:00 97.8 60 18 116/68 100 Room Air 08/22/17 11:32 61 08/22/17 08:25 70 08/22/17 08:00 97.4 68 18 103/60 100 Room Air 08/22/17 04:19 97.0 69 20 105/65 97 08/22/17 04:00 61 08/22/17 00:37 98.1 67 20 105/56 96 Room Air 08/22/17 00:00 65 08/21/17 20:00 97.3 76 20 111/69 97 Room Air 08/21/17 20:00 67 08/21/17 16:00 97.2 70 20 123/73 95 Room Air 08/21/17 16:00 75 08/21/17 12:00 67 08/21/17 12:00 97.9 69 20 134/78 97 Room Air 08/21/17 08:00 96.3 73 20 105/67 99 Room Air 08/21/17 08:00 83 08/21/17 04:00 97.3 67 20 106/65 99 Room Air 08/21/17 03:39 60 08/21/17 00:16 98.0 61 20 108/60 99 Room Air 08/20/17 23:46 67 08/20/17 20:40 69 08/20/17 20:00 97.3 67 20 107/57 97 Room Air 08/20/17 16:00 98.1 78 20 119/75 100 Room Air 08/20/17 16:00 63 08/20/17 12:00 79 08/20/17 12:00 96.9 68 20 112/68 100 Room Air 08/20/17 08:00 97.9 61 20 114/73 100 Room Air 08/20/17 04:41 97.5 69 18 109/66 97 Room Air 08/20/17 04:00 58 Last 24 Hour Vital Signs Date Time Temp Pulse Resp B/P (MAP) Pulse Ox O2 Delivery O2 Flow Rate FiO2 08/22/17 12:00 97.8 60 18 116/68 100 Room Air 08/22/17 11:32 61 08/22/17 08:25 70 08/22/17 08:00 97.4 68 18 103/60 100 Room Air 08/22/17 04:19 97.0 69 20 105/65 97 08/22/17 04:00 61 Labs Test 08/20/17 07:15 08/21/17 06:45 White Blood Count 4.3 K/UL (4.8-10.8) 5.1 K/UL (4.8-10.8) Red Blood Count 3.53 M/UL (4.70-6.10) 3.48 M/UL (4.70-6.10) Hemoglobin 8.0 G/DL (14.2-18.0) 8.0 G/DL (14.2-18.0) Hematocrit 25.9 % (42.0-52.0) 25.6 % (42.0-52.0) Mean Corpuscular Volume 73 FL (80-99) 74 FL (80-99) Mean Corpuscular Hemoglobin 22.6 PG (27.0-31.0) 23.2 PG (27.0-31.0) Mean Corpuscular Hemoglobin Concent 30.8 G/DL (32.0-36.0) 31.4 G/DL (32.0-36.0) Red Cell Distribution Width 17.3 % (11.6-14.8) 17.6 % (11.6-14.8) Platelet Count 146 K/UL (150-450) 152 K/UL (150-450) Mean Platelet Volume 7.2 FL (6.5-10.1) 7.6 FL (6.5-10.1) Neutrophils (%) (Auto) 72.4 % (45.0-75.0) 72.5 % (45.0-75.0) Lymphocytes (%) (Auto) 14.8 % (20.0-45.0) 14.5 % (20.0-45.0) Monocytes (%) (Auto) 12.0 % (1.0-10.0) 11.8 % (1.0-10.0) Eosinophils (%) (Auto) 0.4 % (0.0-3.0) 0.5 % (0.0-3.0) Basophils (%) (Auto) 0.5 % (0.0-2.0) 0.7 % (0.0-2.0) Sodium Level 139 MMOL/L (136-145) 139 MMOL/L (136-145) Potassium Level 4.0 MMOL/L (3.5-5.1) 4.9 MMOL/L (3.5-5.1) Chloride Level 107 MMOL/L (98-107) 108 MMOL/L (98-107) Carbon Dioxide Level 28 MMOL/L (21-32) 28 MMOL/L (21-32) Anion Gap 4 mmol/L (5-15) 3 mmol/L (5-15) Blood Urea Nitrogen 20 mg/dL (7-18) 22 mg/dL (7-18) Creatinine 0.7 MG/DL (0.55-1.30) 0.6 MG/DL (0.55-1.30) Estimat Glomerular Filtration Rate > 60 mL/min (>60) > 60 mL/min (>60) Glucose Level 83 MG/DL (74-106) 95 MG/DL (74-106) Calcium Level 7.8 MG/DL (8.5-10.1) 8.2 MG/DL (8.5-10.1) Total Bilirubin 0.4 MG/DL (0.2-1.0) Aspartate Amino Transf (AST/SGOT) 22 U/L (15-37) Alanine Aminotransferase (ALT/SGPT) 23 U/L (12-78) Alkaline Phosphatase 94 U/L (46-116) Total Protein 5.8 G/DL (6.4-8.2) Albumin 2.5 G/DL (3.4-5.0) Globulin 3.3 g/dL Albumin/Globulin Ratio 0.8 (1.0-2.7) Intake and Output 08/22/17 08/23/17 19:00 07:00 Intake Total 472 ml Output Total 750 ml Balance -278 ml Intake Oral 472 ml Output Urine Total 750 ml # Voids 3 Height (Feet): 5 Height (Inches): 5.00 Weight (Pounds): 160 General Appearance: no apparent distress Viral Ortiz Aug 23, 2017 02:09
--- NOTE | 2017-08-23 23:15 | General Progress Note ---
Assessment/Plan Status: stable Assessment/Plan # Anemia of iron deficiency - continue patient on iv iron, ferritin is low and tibc elevated --> total of 5 doses of iv iron ordered --> F/u path biopsy # Leukopenia is likely medication related, hepatitis and hiv are both negative, us of the abdomen reviewed --> Cont to monitor cbc daily. # Stroke of parietal lobe Right side --> neuro checks, f/u carotid U/S, f/u TTE # Gastric ulceration --> s/p EGD/colo on 08/19/17--showed gastric ulcer, prominent gastric folds suspicious for malignancy, incomplete colonoscopy prep --> Cont PPI Subjective Date patient seen: Aug 22, 2017 Constitutional: Denies: no symptoms, chills, diaphoresis, fever, malaise, weakness, other HEENT: Denies: no symptoms, eye pain, blurred vision, tearing, double vision, ear pain, ear discharge, nose pain, nose congestion, throat pain, throat swelling, mouth pain, mouth swelling, other Cardiovascular: Denies: no symptoms, chest pain, edema, irregular heart rate, lightheadedness, palpitations, syncope, other Respiratory: Denies: no symptoms, cough, orthopnea, shortness of breath, SOB with excertion, SOB at rest, sputum, stridor, wheezing, other Gastrointestinal/Abdominal: Denies: no symptoms, abdomen distended, abdominal pain, black stools, tarry stools, blood in stool, constipated, diarrhea, difficulty swallowing, nausea, poor appetite, poor fluid intake, rectal bleeding , vomiting, other Genitourinary: Denies: no symptoms, burning, discharge, frequency, flank pain, hematuria, incontinence, pain, urgency, other Allergies: Coded Allergies: No Known Allergies (Unverified , 08/17/17) Subjective Stable. No fever or chills. Pending discharge. Objective VS - Last 72 Hours, by Label Date Time Temp Pulse Resp B/P (MAP) Pulse Ox O2 Delivery O2 Flow Rate FiO2 08/22/17 12:00 97.8 60 18 116/68 100 Room Air 08/22/17 11:32 61 08/22/17 08:25 70 08/22/17 08:00 97.4 68 18 103/60 100 Room Air 08/22/17 04:19 97.0 69 20 105/65 97 08/22/17 04:00 61 08/22/17 00:37 98.1 67 20 105/56 96 Room Air 08/22/17 00:00 65 08/21/17 20:00 97.3 76 20 111/69 97 Room Air 08/21/17 20:00 67 08/21/17 16:00 97.2 70 20 123/73 95 Room Air 08/21/17 16:00 75 08/21/17 12:00 67 08/21/17 12:00 97.9 69 20 134/78 97 Room Air 08/21/17 08:00 96.3 73 20 105/67 99 Room Air 08/21/17 08:00 83 08/21/17 04:00 97.3 67 20 106/65 99 Room Air 08/21/17 03:39 60 08/21/17 00:16 98.0 61 20 108/60 99 Room Air 08/20/17 23:46 67 Intake and Output 08/22/17 08/23/17 19:00 07:00 Intake Total 472 ml Output Total 750 ml Balance -278 ml Intake Oral 472 ml Output Urine Total 750 ml # Voids 3 Labs Test 08/21/17 06:45 White Blood Count 5.1 K/UL (4.8-10.8) Red Blood Count 3.48 M/UL (4.70-6.10) Hemoglobin 8.0 G/DL (14.2-18.0) Hematocrit 25.6 % (42.0-52.0) Mean Corpuscular Volume 74 FL (80-99) Mean Corpuscular Hemoglobin 23.2 PG (27.0-31.0) Mean Corpuscular Hemoglobin Concent 31.4 G/DL (32.0-36.0) Red Cell Distribution Width 17.6 % (11.6-14.8) Platelet Count 152 K/UL (150-450) Mean Platelet Volume 7.6 FL (6.5-10.1) Neutrophils (%) (Auto) 72.5 % (45.0-75.0) Lymphocytes (%) (Auto) 14.5 % (20.0-45.0) Monocytes (%) (Auto) 11.8 % (1.0-10.0) Eosinophils (%) (Auto) 0.5 % (0.0-3.0) Basophils (%) (Auto) 0.7 % (0.0-2.0) Sodium Level 139 MMOL/L (136-145) Potassium Level 4.9 MMOL/L (3.5-5.1) Chloride Level 108 MMOL/L (98-107) Carbon Dioxide Level 28 MMOL/L (21-32) Anion Gap 3 mmol/L (5-15) Blood Urea Nitrogen 22 mg/dL (7-18) Creatinine 0.6 MG/DL (0.55-1.30) Estimat Glomerular Filtration Rate > 60 mL/min (>60) Glucose Level 95 MG/DL (74-106) Calcium Level 8.2 MG/DL (8.5-10.1) Total Bilirubin 0.4 MG/DL (0.2-1.0) Aspartate Amino Transf (AST/SGOT) 22 U/L (15-37) Alanine Aminotransferase (ALT/SGPT) 23 U/L (12-78) Alkaline Phosphatase 94 U/L (46-116) Total Protein 5.8 G/DL (6.4-8.2) Albumin 2.5 G/DL (3.4-5.0) Globulin 3.3 g/dL Albumin/Globulin Ratio 0.8 (1.0-2.7) Height (Feet): 5 Height (Inches): 5.00 Weight (Pounds): 160 General Appearance: no apparent distress EENT: normal ENT inspection Cardiovascular: normal rate, regular rhythm Respiratory/Chest: lungs clear, normal breath sounds Abdomen: soft Viral Ortiz Aug 23, 2017 23:15
--- NOTE | 2017-09-04 20:34 | Diagnostic Imaging Report ---
APPROVED REPORT CPT Code: 77127 Vascular Symptoms Unsteady Gait Comments: CVA. Doppler Spectral Velocity Analysis RightLeft external carotid artery. The Doppler spectral flow analysis indicates the degree of stenosis in the external carotid artery is mild (40% - 50%). ICA - Imaging reveals no significant plaque in the common carotid or internal carotid arteries. VERTEBRAL- The vertebral artery is patent, without evidence of stenosis or steal. LEFT SIDE: CCA - Imaging reveals no significant plaque within the extracranial carotid arteries. The Doppler spectral flow analysis is within normal limits throughout the extracranial carotid arteries. VERTEBRAL - The vertebral artery is within normal limits.
== END 2017-08-22 15:45 | disposition short-term general hospital (02) | DRG 65 ==
LOC: EDBD 21:28 → EMR 22:30 → 2E 22:31 → EDBEDREQ 23:47 → EDBEDREQTM 23:47 → EDBEDREQSVC 23:47 → EDBEDREQ 23:48
PROC: 30233N1 Transfusion of Nonautologous Red Blood Cells into Peripheral Vein, Percutaneous Approach (ICD-10-PCS; principal; 2017-08-18)
PROC: 0DJD8ZZ Inspection of Lower Intestinal Tract, Via Natural or Artificial Opening Endoscopic (ICD-10-PCS; 2017-08-19 10:17)
PROC: 0DB68ZX Excision of Stomach, Via Natural or Artificial Opening Endoscopic, Diagnostic (ICD-10-PCS; 2017-08-19 10:17)
PROC: 0DB78ZX Excision of Stomach, Pylorus, Via Natural or Artificial Opening Endoscopic, Diagnostic (ICD-10-PCS; 2017-08-19 10:17)
DX: I63.9 Cerebral infarction, unspecified (principal); D62 Acute posthemorrhagic anemia; G81.94 Hemiplegia, unspecified affecting left nondominant side; K25.9 Gastric ulcer, unspecified as acute or chronic, without hemorrhage or perforation; D50.9 Iron deficiency anemia, unspecified; E11.9 Type 2 diabetes mellitus without complications; E53.8 Deficiency of other specified B group vitamins; D64.9 Anemia, unspecified; K57.90 Diverticulosis of intestine, part unspecified, without perforation or abscess without bleeding; K64.8 Other hemorrhoids; E87.6 Hypokalemia; Z23 Encounter for immunization
CPT/HCPCS: 36415; 70450; 70551; 71045; 76700; 80048; 80053; 80061; 80076; 81003; 82247; 82248; 82306; 82378; 82607; 82728; 82746; 83020; 83036; 83090; 83540; 83550; 83615; 83735; 84443; 84484; 85007; 85025; 85384; 85610; 85730; 86677; 86703; 86705; 86709; 86803; 86850; 86900; 86901; 86920; 87340; 90630; 90732; 93005; 93306; 93880; 94003; 94150; 99285; J8499